=== PATIENT | male | born 1945 | race Caucasian/White ===

== ENCOUNTER 2018-11-27 08:11 | Inpatient (IN) | payer MEDICARE ==
[~2018-11-27] VITALS: Ht 193 cm; Wt 113.4 kg
[~2018-11-27 08:11] MED LIST: AMLO1CAP6 PO; CARB1TAB2 PO; CHOL10003 PO; FAMO20TA5 PO; FISH1CAP PO; GARL10002 PO; MAGN400C PO; PIOG30TA41 PO; TURM500C4 PO; UBID100C26 PO; WARF4TAB68 PO
[2018-11-27] MEDS ORDERED: KETOROLAC 30 MG/ML VIAL. IV ONE (09:15)
--- NOTE | 2018-11-27 10:00 | RAD ---
Examination: CT thoracic and lumbar spine without contrast HISTORY: History of fall, pain COMPARISON: None available TECHNIQUE: Axial CT images of the thoracic and lumbar spine were performed without contrast. Coronal and sagittal reformats are performed. Exposure: One or more of the following individualized dose reduction techniques were utilized for this examination: 1. Automated exposure control 2. Adjustment of the mA and/or kV according to patient size 3. Use of iterative reconstruction technique FINDINGS: Osseous demineralization limits evaluation. Moderate intervertebral disc height loss identified throughout the thoracic spine. There is mild compression change of T7 vertebral body similar to prior exam. There is kyphoplasty changes identified in the T12 vertebral body with severe compression again identified. There is kyphoplasty changes in the L2 vertebral body with moderate compression. There is mild compression of the L3 vertebral body with the lucency identified in the superior endplate likely acute fracture of the L3 vertebral body without bony retropulsion. Severe intervertebral disc height loss identified at L1-L2, L5-S1 vertebral levels. Examination limited osseous demineralization. Mild aortic atherosclerosis. IMPRESSION: 1. Acute fracture of the L3 vertebral body without bony retropulsion. Correlate for point tenderness. 2. Severe compression changes of T12 vertebral body and moderate compression changes of L2 vertebral body with kyphoplasty changes. 3. Old moderate compression fracture of T5 vertebral body. 4. Multilevel degenerative changes throughout the thoracolumbar spine. Electronically signed by: Real Elder MD (11/27/2018 9:57 AM) [id number]
[2018-11-27] MEDS ORDERED: ONDANSETRON PF 4 MG/2 ML VIAL. IV PRN ×2 (11:15→13:15)
[2018-11-27] MEDS ORDERED: ACETAMINOPHEN 325 MG TABLET. PO PRN (11:15)
[2018-11-27 11:45] VITALS: BP 145/84
--- NOTE | 2018-11-27 12:01 | PHYS DOC ---
Past Medical History Past Medical History: Diabetes-Type II, Other Additional Past Medical Histor: PARKINSON'S,PE Past Surgical History: Other Additional Past Surgical Histo: VERTEBRAL PLASTIES,COLLAR BONE Alcohol Use: None Drug Use: None Adult General Chief Complaint Chief Complaint: LOWER BACK PAIN OR INJURY HPI HPI 72-year-old male with a history of Parkinson's disease and previous lumbar and thoracic compression fractures presents 24 hours after he fell landing on his knees with immediate low back pain. He states over the course of last 24 hours the pain is become worse he's been unable to move and get out of bed. He is limited at baseline by his size and is Parkinson's disease but this is caused him to become bedbound. He denies any radicular symptoms. No bowel or bladder dysfunction. No saddle paresthesia. He does state the pain is 10 out of 10. He' s also quick to inform me that he does not want any opioid type pain medicine.[] Review of Systems Review of Systems Constitutional: Denies fever or chills [] Eyes: Denies change in visual acuity, redness, or eye pain [] HENT: Denies nasal congestion or sore throat [] Respiratory: Denies cough or shortness of breath [] Cardiovascular: No additional information not addressed in HPI [] GI: Denies abdominal pain, nausea, vomiting, bloody stools or diarrhea [] : Denies dysuria or hematuria [] Musculoskeletal: Per history of present illness[] Integument: Denies rash or skin lesions [] Neurologic: Denies headache, focal weakness or sensory changes [] Endocrine: Denies polyuria or polydipsia [] All other systems were reviewed and found to be within normal limits, except as documented in this note. Current Medications Current Medications Current Medications Medications (Trade) Dose Ordered Sig/Gabi Start Time Stop Time Status Last Admin Dose Admin Ketorolac Tromethamine (Toradol 30mg Vial) 30 mg 1X ONCE 11/27/18 09:15 11/27/18 09:16 DC 11/27/18 09:55 30 MG Allergies Allergies Allergies Coded Allergies Type Severity Reaction Last Updated Verified fentanyl Adverse Reaction Severe HALLUCINATES 02/18/18 Yes hydromorphone Adverse Reaction Severe HALLUCINATES 02/18/18 Yes Physical Exam Physical Exam Constitutional: Well developed, well nourished, moderate distress, non-toxic appearance. [] HENT: Normocephalic, atraumatic, bilateral external ears normal, oropharynx moist, no oral exudates, nose normal. [] Eyes: PERRLA, EOMI, conjunctiva normal, no discharge. [] Neck: Normal range of motion, no tenderness, supple, no stridor. [] Cardiovascular:Heart rate regular rhythm, no murmur [] Lungs & Thorax: Bilateral breath sounds clear to auscultation [] Abdomen: Bowel sounds normal, soft, no tenderness, no masses, no pulsatile masses. [] Skin: Warm, dry, no erythema, no rash. [] Back: Lumbar tenderness in the midline no obvious step-off exam is difficult secondary to size. [] Extremities: No tenderness, no cyanosis, no clubbing, ROM intact, no edema. [] Neurologic: Alert and oriented X 3, normal motor function, normal sensory function, no focal deficits noted. [] Psychologic: Very anxious. [] Current Patient Data Vital Signs Vital Signs Date Time Temp Pulse Resp B/P (MAP) Pulse Ox O2 Delivery O2 Flow Rate FiO2 11/27/18 11:00 82 20 131/69 (89) 93 Room Air 11/27/18 08:11 98.4 98.4 EKG EKG [] Radiology/Procedures Radiology/Procedures [] Course & Med Decision Making Course & Med Decision Making Pertinent Labs and Imaging studies reviewed. (See chart for details) [ED course: Evaluation reveals a 72-year-old male with intractable back pain. He was given Toradol for pain control which did help alleviate his symptoms. I believe it's because he is in a more comfortable position in the bed more so than the pain medicine working. He does have movement in his lower extremities sensation as well. CT scan shows new compression fracture. I believe he needs to be admitted to the hospital for physical therapy and possible consideration for vertebroplasty.] Dragon Disclaimer Dragon Disclaimer This electronic medical record was generated, in whole or in part, using a voice recognition dictation system. Departure Departure Impression: Primary Impression: Lumbar compression fracture Additional Impression: Intractable back pain Disposition: ADMITTED INPATIENT Admitting Physician: Riri Houston Condition: STABLE Referrals: ARGENIS STOCK DO (PCP) Problem Qualifiers Primary Impression: Lumbar compression fracture Encounter type: initial encounter Lumbar vertebra fracture level: L3 Fracture type: closed Qualified Codes: S32.030A - Wedge compression fracture of third lumbar vertebra, initial encounter for closed fracture ROBERTO GOMEZ DO Nov 27, 2018 12:01
[2018-11-27] MEDS ORDERED: oxyCODONE/APAP 5/325 1 TAB TABLET PO PRN (13:15)
[2018-11-27] MEDS ORDERED: DEXTROSE 50% 25 GM / 50ML DISP.SYRIN. IV PRN (13:15)
[2018-11-27] MEDS ORDERED: MORPHINE SULFATE 2 MG/ML VIAL. IV PRN (13:15)
--- NOTE | 2018-11-27 13:37 | PDOC1 ---
History and Physical Date of Admission Date of Admission DATE: 11/27/18 TIME: 13:32 Identification/Chief Complaint Chief Complaint severe Back pain, unable to get up today Source Source: Caregiver, Chart review, Patient History of Present Illness History of Present Illness 72-year-old male who fell on Sunday, mechanical fall, but still able to function somewhat. But today worsening that he could not get up. At the emergency room , no blood work needed to be done, but CAT scan shows compression fractures Thoracic and lumbar levels. Also known history of old fractures with evidence of kyphoplasty. No loss of bowel or bladder function. Palpable distal pulses. Severe reaction to fentanyl and Dilaudid and is not wanting narcotics. So far pain is controlled with Toradol and if he lays still. 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 Admitted because of the acute compression fractures thoracic and lumbar spines CT 1. Acute fracture of the L3 vertebral body without bony retropulsion. Correlate for point tenderness. 2. Severe compression changes of T12 vertebral body and moderate compression changes of L2 vertebral body with kyphoplasty changes. 3. Old moderate compression fracture of T5 vertebral body. 4. Multilevel degenerative changes throughout the thoracolumbar spine. Past Medical History Cardiovascular: HTN, Hyperlipidemia Pulmonary: Asthma CENTRAL NERVOUS SYSTEM: CVA, Other GI: No pertinent hx Heme/Onc: No pertinent hx, Other (saddle PE February 2018) Hepatobiliary: No pertinent hx Psych: No pertinent hx Infectious disease: No pertinent hx Renal/: No pertinent hx, Urinary Incontinence Endocrine: Diabetes Past Surgical History Past Surgical History: Other Family History Family History: No Significant Social History Smoke: No ALCOHOL: none Drugs: None Current Problem List Problem List Problems Medical Problems: (1) Intractable back pain Status: Acute (2) Lumbar compression fracture Status: Acute Current Medications Current Medications Current Medications Ketorolac Tromethamine (Toradol 30mg Vial) 30 mg 1X ONCE IV Last administered on 11/27/18at 09:55; Start 11/27/18 at 09:15; Stop 11/27/18 at 09:16; Status DC Ondansetron HCl (Zofran) 4 mg PRN Q8HRS PRN IV NAUSEA/VOMITING; Start 11/27/18 at 11:15; Stop 11/27/18 at 13:09; Status DC Sodium Chloride 1,000 ml @ 100 mls/hr Q10H IV ; Start 11/27/18 at 11:05; Stop 11/28/18 at 11:04 Acetaminophen (Tylenol) 650 mg PRN Q4HRS PRN PO FEVER; Start 11/27/18 at 11:15 ; Stop 11/28/18 at 11:14 Ondansetron HCl (Zofran) 4 mg PRN Q6HRS PRN IV NAUSEA/VOMITING; Start 11/27/18 at 13:15 Carbidopa/Levodopa (Sinemet 25/100) 1 tab TID PO ; Start 11/27/18 at 14:00; Stop 11/27/18 at 14:00; Status DC Vitamin D (Vitamin D3) 2,000 unit DAILY PO ; Start 11/27/18 at 14:00 Famotidine (Pepcid) 20 mg BID PO ; Start 11/27/18 at 14:00 Non-Formulary Medication (Amlodipine Besylate/ Benazepril (Lotrel 5-20 Mg Capsule)) 1 cap DAILY PO ; Start 11/28/18 at 09:00; Stop 11/28/18 at 09:00; Status DC Fish Oil (Fish Oil) 1,000 mg DAILY PO ; Start 11/27/18 at 14:00 Non-Formulary Medication (Garlic ) 1,000 mg DAILY PO ; Start 11/28/18 at 09:00; Status UNV Magnesium Oxide (Magnesium Oxide) 400 mg DAILY PO ; Start 11/27/18 at 14:00 Pioglitazone HCl (Actos) 30 mg DAILY PO ; Start 11/27/18 at 14:00 Non-Formulary Medication (Turmeric/ Turmeric Root Extract (Turmeric 500 mg Capsule)) 500 mg DAILY PO ; Start 11/28/18 at 09:00; Status UNV Non-Formulary Medication (Ubidecarenone (Coq-10)) 100 mg DAILY PO ; Start at 09:00; Status UNV Non-Formulary Medication (Warfarin Sodium (Coumadin)) 1 tab DAILY PO ; Start at 09:00; Stop 11/28/18 at 09:00; Status DC Insulin Human Lispro (HumaLOG) 0-9 UNITS TIDWMEALS SQ ; Start 11/27/18 at 17:00 ; Stop 11/27/18 at 17:00; Status DC Dextrose (Dextrose 50%-Water Syringe) 12.5 gm PRN Q15MIN PRN IV SEE COMMENTS; Start 11/27/18 at 13:15; Stop 11/27/18 at 13:31; Status DC Oxycodone/ Acetaminophen (Percocet 5/325) 1 tab PRN Q4HRS PRN PO PAIN; Start at 13:15; Stop 11/27/18 at 13:31; Status DC Morphine Sulfate (Morphine Sulfate) 2 mg PRN Q2HR PRN IV PAIN; Start 11/27/18 at 13:15; Stop 11/27/18 at 13:30; Status DC Active Scripts Active Coumadin (Warfarin Sodium) 4 Mg Tablet 1 Tab PO DAILY Famotidine 20 Mg Tablet 20 Mg PO BID Reported Actos (Pioglitazone Hcl) 30 Mg Tablet 30 Mg PO DAILY Lotrel 5-20 Mg Capsule (Amlodipine Besylate/Benazepril) 1 Each Capsule 1 Cap PO DAILY Sinemet 25-100 Mg Tablet (Carbidopa/Levodopa) 1 Each Tablet 1 Tab PO TID Garlic 1,000 Mg Capsule 1,000 Mg PO DAILY Vitamin D3 (Cholecalciferol (Vitamin D3)) 1,000 Unit Tablet 2,000 Unit PO DAILY Coq-10 (Ubidecarenone) 100 Mg Capsule 100 Mg PO DAILY Magnesium (Magnesium Oxide) 400 Mg Capsule 400 Mg PO DAILY Turmeric 500 mg Capsule (Turmeric/Turmeric Root Extract) 1 Each Capsule 500 Mg PO DAILY Fish Oil 1,200 Mg Fish Oil (Fish Oil/Dha/Epa) 1 Each Capsule 1,200 Mg PO DAILY Allergies Allergies: Coded Allergies: fentanyl (Verified Adverse Reaction, Severe, HALLUCINATES, 02/18/18) hydromorphone (Verified Adverse Reaction, Severe, HALLUCINATES, 02/18/18) ROS Review of System Back pain, the rest of history of present illness or ROS negative Physical Exam General: Alert, Oriented X3, Cooperative, No acute distress HEENT: Atraumatic, PERRLA, EOMI Lungs: Clear to auscultation, Normal air movement Heart: S1S2, RRR, no thrills, no rubs, no gallops, no murmurs Cardiovascular: S1, S2 Abdomen: Normal bowel sounds, Soft, No tenderness, No hepatosplenomegaly, No masses Male Genitals Exam: normal genitalia, normal prostate Rectal Exam: not examined Extremities: No clubbing, No cyanosis, No edema, Normal pulses, No tenderness/ swelling Skin: No rashes, No breakdown, No significant lesion Neuro: Normal gait, Normal speech, Strength at 5/5 X4 ext, Normal tone, Sensation intact, Cranial nerves 3-12 NL, Reflexes 2+ Psych/Mental Status: Mental status NL, Mood NL Vitals Vitals Vital Signs Date Time Temp Pulse Resp B/P (MAP) Pulse Ox O2 Delivery O2 Flow Rate FiO2 11/27/18 11:45 97.6 95 18 145/84 (104) 93 Room Air 97.6 VTE Prophylaxis Ordered VTE Prophylaxis Devices: Yes VTE Pharmacological Prophylaxi: Yes Assessment/Plan Assessment/Plan Acute fracture L3 without bony retropulsion Mechanical fall at home Severe compression changes T12-L2 History of kyphoplasty Old moderate compression fracture T5 DJD thoracic lumbar spine Parkinson's off Sinemet because of absence of tremors History PE February 2018 maintained on Coumadin-1 year, target N date February 2019 Severe reaction to Dilaudid and fentanyl-does not want narcotics. PLAN: Toradol only for pain, Tylenol only for by mouth pain Does not want any narcotic of sorts Consult physiatry Consult neurosurgery regarding acute fracture PT OT when able I did hold off warfarin pending neurosurgery eval Regular diet today then nothing by mouth post midnight pending neurosurgery eval Does not want to have blood sugar checks I'm okay with that-blood sugars not too high Further recs pending above discussed with RN and at bedside NATACHA MARI MD Nov 27, 2018 13:37
[2018-11-27 14:00] LABS: BASO % 0 % (0-3); EOS # 0.3 x10^3/uL (0.0-0.7); EOS % 4 % (0-3); HEMATOCRIT 41.6 % (39.0-53.0); HEMOGLOBIN 14.1 g/dL (13.0-17.5); LYMPH # 0.9 x10^3/uL (1.0-4.8); LYMPH % 14 % (24-48); MEAN CORPUSCULAR HEMOGLOBIN 33 pg (25-35); MEAN CORPUSCULAR HGB CONC 34 g/dL (31-37); MEAN CORPUSCULAR VOLUME 96 fL (79-100); MONO # 0.9 x10^3/uL (0.0-1.1); MONO % 13 % (0-9); NEUT # 4.6 x10^3uL (1.8-7.7); NEUT % 69 % (31-73); PLATELET COUNT 166 x10^3/uL (140-400); RED BLOOD COUNT 4.34 x10^6/uL (4.30-5.70); RED CELL DISTRIBUTION WIDTH 14.3 % (11.5-14.5); WHITE BLOOD COUNT 6.7 x10^3/uL (4.0-11.0)
[2018-11-27] MEDS: FAMOTIDINE 20 MG TABLET. PO SCH ×2 (14:00→21:00)
[2018-11-27] MEDS ORDERED: CARBIDOPA/LEVODOPA 25/100MG TABLET PO SCH (14:00)
[2018-11-27 14:07] LABS: PROTHROMBIN TIME PATIENT 25.8 SEC (11.7-14.0)
[2018-11-27 14:19] LABS: CALCIUM 8.7 mg/dL (8.5-10.1); CREATININE 1.1 mg/dL (0.7-1.3); GFR 66.2; POTASSIUM 4.2 mmol/L (3.5-5.1)
[2018-11-27 15:00] VITALS: BP 141/81
[2018-11-27] MEDS ORDERED: INSULIN LISPRO 300 UNITS/3 ML INSULN.PEN. SQ SCH (17:00)
[2018-11-27] MEDS: PIOGLITAZONE 15 MG TABLET. PO SCH (17:14)
[2018-11-27] MEDS: OMEGA-3 FATTY ACIDS/FISH OIL 1,000 MG CAPSULE. PO SCH (17:17)
[2018-11-27] MEDS: CHOLECALCIFEROL (VITAMIN D3) 1,000 UNIT TABLET PO SCH (17:17)
[2018-11-27] MEDS: MAGNESIUM OXIDE 400 MG TABLET PO SCH (17:17)
[2018-11-27] MEDS: IV NORMAL SALINE 1000ML BAG 1,000 ML IV SCH (17:19)
[2018-11-27 19:00] VITALS: BP 169/98
[2018-11-27] MEDS ORDERED: CYCLOBENZAPRINE 10 MG TABLET. PO PRN (19:00)
--- NOTE | 2018-11-27 19:50 | NUR ---
Pt was admitted from ED. Pt spouse was with pt on admission. Pt was oriented to unit and room. Pt is on bedrest. Spouse states pt has hallucinations at night. Pt cries at times, self soothes reciting scripture.
[2018-11-27 23:00] VITALS: BP 170/99
[2018-11-28 03:00] VITALS: BP 174/86
[2018-11-28] MEDS: IV NORMAL SALINE 1000ML BAG 1,000 ML IV SCH ×2 (06:16→06:33)
[2018-11-28 07:00] VITALS: BP 143/89
[2018-11-28] MEDS ORDERED: NON FORMULARY ITEM (Ubidecarenone (Coq-10) 100 MG) PO SCH (09:00)
[2018-11-28] MEDS ORDERED: NON FORMULARY ITEM (Warfarin Sodium (Coumadin) 1 TAB) PO SCH (09:00)
[2018-11-28] MEDS: PIOGLITAZONE 15 MG TABLET. PO SCH (09:00)
[2018-11-28] MEDS ORDERED: BENAZEPRIL PO SCH (09:00)
[2018-11-28] MEDS ORDERED: TURMERIC ROOT EXTRACT PO SCH (09:00)
[2018-11-28] MEDS ORDERED: AMLODIPINE BESYLATE PO SCH (09:00)
[2018-11-28] MEDS: BISACODYL 5 MG TABLET.DR. PO SCH (09:00)
[2018-11-28] MEDS: CHOLECALCIFEROL (VITAMIN D3) 1,000 UNIT TABLET PO SCH (09:00)
[2018-11-28] MEDS: MAGNESIUM OXIDE 400 MG TABLET PO SCH (09:00)
[2018-11-28] MEDS: OMEGA-3 FATTY ACIDS/FISH OIL 1,000 MG CAPSULE. PO SCH (09:00)
[2018-11-28] MEDS: FAMOTIDINE 20 MG TABLET. PO SCH ×2 (09:00→21:13)
[2018-11-28] MEDS ORDERED: NON FORMULARY ITEM (Garlic 1,000 MG) PO SCH (09:00)
[2018-11-28] MEDS ORDERED: TURMERIC PO SCH (09:00)
[2018-11-28 11:00] VITALS: BP 153/93
--- NOTE | 2018-11-28 11:26 | NUR ---
SW following. Discussed with RN, pt having an MRI today, and a procedure. Pt having falls at home. RN advised pt has some visual and auditory hallucinations but self soothes with reciting bible verses. SW will await PT/OT recommendations for discharge planning.
--- NOTE | 2018-11-28 13:07 | RAD ---
EXAMINATION: Magnetic resonance imaging (MRI) of the lumbar spine without contrast 11/28/2018 6:57 PM HISTORY: Acute L3 vertebral body compression fracture. TECHNIQUE: Multiplanar multi-weighted MRI of the lumbar spine was performed without intravenous contrast using the standard lumbar spine protocol. Contrast information: None administered. COMPARISON: CT lumbar spine November 27, 2018 FINDINGS: Alignment of the lumbar spine is normal. There is a treated superior endplate compression fracture involving T12 with 75 percent height loss. There is mild retropulsion resulting in mild spinal canal stenosis with minimal deformity of the ventral conus medullaris. The conus medullaris terminates at L1. Distal spinal cord signal intensity is normal in all sequences. There is a treated superior plate compression fracture involving L2 with 50 percent height loss. There is minimal retropulsion identified at this level with mild spinal canal stenosis. There is a acute superior plate compression fracture involving L3. There is mixed internal T1 and T2 signal hyperintensity which may reflect intraosseous hematoma. Edema is localized to the regions of fracture. There is no disruption of the posterior ligamentous complex. There is no significant epidural hematoma. No paraspinal hematomas identified. There is moderate disc height loss at L5-S1 with Modic type II endplate degenerative changes. Abdominal aorta is normal in caliber. No suspicious retroperitoneal abnormality is identified. T11-T12: There is a moderate disc bulge. There is moderate facet arthropathy. There is moderate bilateral neuroforaminal stenosis. Mild spinal canal stenosis with minimal indentation of the ventral conus. T12-L1: There is normal configuration of the disc. Mild facet arthropathy. No neuroforaminal or spinal canal stenosis. L1-L2: There is a mild circumferential disc bulge. There is mild facet arthropathy ligamentum flavum infolding. There is moderate bilateral neuroforaminal stenosis. Mild spinal canal stenosis. L2-L3: There is a moderate circumferential disc bulge. There is moderate facet arthropathy. There is moderate left and mild right neuroforaminal stenosis. Moderate spinal canal stenosis, exacerbated by epidural lipomatosis. L3-L4: There is mild circumferential disc bulge. There is moderate facet arthropathy with ligamentum flavum infolding. There is mild bilateral neuroforaminal stenosis. Mild spinal canal stenosis. L4-L5: There is a moderate disc bulge. There is moderate facet arthropathy. There is mild to moderate bilateral neuroforaminal stenosis. No spinal canal stenosis. L5-S1: There is disc bulge with mild to moderate bilateral neuroforaminal stenosis. No spinal canal stenosis. IMPRESSION: 1. Acute superior plate compression fracture involving L3 with mild loss. Intraosseous hematoma is suspected. There is no epidural hematoma or disruption the posterior ligamentous complex. 2. Treated compression deformities are identified at T12 and L2 with associated retropulsion and spinal canal stenosis as described in detail above. 3. Mild to moderate degenerative changes of the lumbar spine are present. Electronically signed by: Katherin Carbajal MD (11/28/2018 1:04 PM) [id number]
--- NOTE | 2018-11-28 13:19 | PDOC ---
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 History of Present Illness History of Present Illness Toradol for pain Consult physiatry following, discussed with me IR may be able to kyphoplasty, MRI showed hematoma Hold coumadin Regular diet Vitals Vitals Vital Signs Date Time Temp Pulse Resp B/P (MAP) Pulse Ox O2 Delivery O2 Flow Rate FiO2 11/28/18 11:00 99.6 89 16 153/93 (113) 92 Room Air 99.6 Physical Exam General: Alert, Oriented X3, Cooperative, No acute distress Lungs: Clear, Other Abdomen: Normal bowel sounds, Soft, No tenderness, No hepatosplenomegaly, No masses Extremities: No clubbing, No cyanosis, No edema, Normal pulses, No tenderness/ swelling Skin: No rashes, No breakdown, No significant lesion Labs LABS Laboratory Tests Test 11/27/18 13:45 White Blood Count 6.7 x10^3/uL (4.0-11.0) Red Blood Count 4.34 x10^6/uL (4.30-5.70) Hemoglobin 14.1 g/dL (13.0-17.5) Hematocrit 41.6 % (39.0-53.0) Mean Corpuscular Volume 96 fL (79-100) Mean Corpuscular Hemoglobin 33 pg (25-35) Mean Corpuscular Hemoglobin Concent 34 g/dL (31-37) Red Cell Distribution Width 14.3 % (11.5-14.5) Platelet Count 166 x10^3/uL (140-400) Neutrophils (%) (Auto) 69 % (31-73) Lymphocytes (%) (Auto) 14 % (24-48) Monocytes (%) (Auto) 13 % (0-9) Eosinophils (%) (Auto) 4 % (0-3) Basophils (%) (Auto) 0 % (0-3) Neutrophils # (Auto) 4.6 x10^3uL (1.8-7.7) Lymphocytes # (Auto) 0.9 x10^3/uL (1.0-4.8) Monocytes # (Auto) 0.9 x10^3/uL (0.0-1.1) Eosinophils # (Auto) 0.3 x10^3/uL (0.0-0.7) Basophils # (Auto) 0.0 x10^3/uL (0.0-0.2) Prothrombin Time 25.8 SEC (11.7-14.0) Prothromb Time International Ratio 2.4 (0.8-1.1) Sodium Level 144 mmol/L (136-145) Potassium Level 4.2 mmol/L (3.5-5.1) Chloride Level 106 mmol/L (98-107) Carbon Dioxide Level 29 mmol/L (21-32) Anion Gap 9 (6-14) Blood Urea Nitrogen 15 mg/dL (8-26) Creatinine 1.1 mg/dL (0.7-1.3) Estimated GFR (Cockcroft-Gault) 66.2 Glucose Level 113 mg/dL (70-99) Calcium Level 8.7 mg/dL (8.5-10.1) 25-Hydroxy Vitamin D Total 30.8 ng/mL (30-100) Assessment and Plan Assessmemt and Plan Problems Medical Problems: (1) Intractable back pain Status: Acute (2) Lumbar compression fracture Status: Acute Comment Review of Relevant I have reviewed the following items alma delia (where applicable) has been applied. Labs Laboratory Tests Test 11/27/18 13:45 White Blood Count 6.7 x10^3/uL (4.0-11.0) Red Blood Count 4.34 x10^6/uL (4.30-5.70) Hemoglobin 14.1 g/dL (13.0-17.5) Hematocrit 41.6 % (39.0-53.0) Mean Corpuscular Volume 96 fL (79-100) Mean Corpuscular Hemoglobin 33 pg (25-35) Mean Corpuscular Hemoglobin Concent 34 g/dL (31-37) Red Cell Distribution Width 14.3 % (11.5-14.5) Platelet Count 166 x10^3/uL (140-400) Neutrophils (%) (Auto) 69 % (31-73) Lymphocytes (%) (Auto) 14 % (24-48) Monocytes (%) (Auto) 13 % (0-9) Eosinophils (%) (Auto) 4 % (0-3) Basophils (%) (Auto) 0 % (0-3) Neutrophils # (Auto) 4.6 x10^3uL (1.8-7.7) Lymphocytes # (Auto) 0.9 x10^3/uL (1.0-4.8) Monocytes # (Auto) 0.9 x10^3/uL (0.0-1.1) Eosinophils # (Auto) 0.3 x10^3/uL (0.0-0.7) Basophils # (Auto) 0.0 x10^3/uL (0.0-0.2) Prothrombin Time 25.8 SEC (11.7-14.0) Prothromb Time International Ratio 2.4 (0.8-1.1) Sodium Level 144 mmol/L (136-145) Potassium Level 4.2 mmol/L (3.5-5.1) Chloride Level 106 mmol/L (98-107) Carbon Dioxide Level 29 mmol/L (21-32) Anion Gap 9 (6-14) Blood Urea Nitrogen 15 mg/dL (8-26) Creatinine 1.1 mg/dL (0.7-1.3) Estimated GFR (Cockcroft-Gault) 66.2 Glucose Level 113 mg/dL (70-99) Calcium Level 8.7 mg/dL (8.5-10.1) 25-Hydroxy Vitamin D Total 30.8 ng/mL (30-100) Laboratory Tests Test 11/27/18 13:45 White Blood Count 6.7 x10^3/uL (4.0-11.0) Red Blood Count 4.34 x10^6/uL (4.30-5.70) Hemoglobin 14.1 g/dL (13.0-17.5) Hematocrit 41.6 % (39.0-53.0) Mean Corpuscular Volume 96 fL (79-100) Mean Corpuscular Hemoglobin 33 pg (25-35) Mean Corpuscular Hemoglobin Concent 34 g/dL (31-37) Red Cell Distribution Width 14.3 % (11.5-14.5) Platelet Count 166 x10^3/uL (140-400) Neutrophils (%) (Auto) 69 % (31-73) Lymphocytes (%) (Auto) 14 % (24-48) Monocytes (%) (Auto) 13 % (0-9) Eosinophils (%) (Auto) 4 % (0-3) Basophils (%) (Auto) 0 % (0-3) Neutrophils # (Auto) 4.6 x10^3uL (1.8-7.7) Lymphocytes # (Auto) 0.9 x10^3/uL (1.0-4.8) Monocytes # (Auto) 0.9 x10^3/uL (0.0-1.1) Eosinophils # (Auto) 0.3 x10^3/uL (0.0-0.7) Basophils # (Auto) 0.0 x10^3/uL (0.0-0.2) Prothrombin Time 25.8 SEC (11.7-14.0) Prothromb Time International Ratio 2.4 (0.8-1.1) Sodium Level 144 mmol/L (136-145) Potassium Level 4.2 mmol/L (3.5-5.1) Chloride Level 106 mmol/L (98-107) Carbon Dioxide Level 29 mmol/L (21-32) Anion Gap 9 (6-14) Blood Urea Nitrogen 15 mg/dL (8-26) Creatinine 1.1 mg/dL (0.7-1.3) Estimated GFR (Cockcroft-Gault) 66.2 Glucose Level 113 mg/dL (70-99) Calcium Level 8.7 mg/dL (8.5-10.1) 25-Hydroxy Vitamin D Total 30.8 ng/mL (30-100) Medications Current Medications Ketorolac Tromethamine (Toradol 30mg Vial) 30 mg 1X ONCE IV Last administered on 11/27/18at 09:55; Start 11/27/18 at 09:15; Stop 11/27/18 at 09:16; Status DC Ondansetron HCl (Zofran) 4 mg PRN Q8HRS PRN IV NAUSEA/VOMITING; Start 11/27/18 at 11:15; Stop 11/27/18 at 13:09; Status DC Sodium Chloride 1,000 ml @ 100 mls/hr Q10H IV Last administered on 11/28/18at 06:16; Start 11/27/18 at 11:05; Stop 11/28/18 at 11:04; Status DC Acetaminophen (Tylenol) 650 mg PRN Q4HRS PRN PO FEVER; Start 11/27/18 at 11:15 ; Stop 11/28/18 at 11:14; Status DC Ondansetron HCl (Zofran) 4 mg PRN Q6HRS PRN IV NAUSEA/VOMITING; Start 11/27/18 at 13:15 Carbidopa/Levodopa (Sinemet 25/100) 1 tab TID PO ; Start 11/27/18 at 14:00; Stop 11/27/18 at 14:00; Status DC Vitamin D (Vitamin D3) 2,000 unit DAILY PO Last administered on 11/27/18at 17:17 ; Start 11/27/18 at 14:00 Famotidine (Pepcid) 20 mg BID PO ; Start 11/27/18 at 14:00 Non-Formulary Medication (Amlodipine Besylate/ Benazepril (Lotrel 5-20 Mg Capsule)) 1 cap DAILY PO ; Start 11/28/18 at 09:00; Stop 11/28/18 at 09:00; Status DC Fish Oil (Fish Oil) 1,000 mg DAILY PO Last administered on 11/27/18at 17:17; Start 11/27/18 at 14:00 Non-Formulary Medication (Garlic ) 1,000 mg DAILY PO ; Start 11/28/18 at 09:00; Status UNV Magnesium Oxide (Magnesium Oxide) 400 mg DAILY PO Last administered on at 17:17; Start 11/27/18 at 14:00 Pioglitazone HCl (Actos) 30 mg DAILY PO Last administered on 11/27/18at 17:14; Start 11/27/18 at 14:00 Non-Formulary Medication (Turmeric/ Turmeric Root Extract (Turmeric 500 mg Capsule)) 500 mg DAILY PO ; Start 11/28/18 at 09:00; Status UNV Non-Formulary Medication (Ubidecarenone (Coq-10)) 100 mg DAILY PO ; Start at 09:00; Status UNV Non-Formulary Medication (Warfarin Sodium (Coumadin)) 1 tab DAILY PO ; Start at 09:00; Stop 11/28/18 at 09:00; Status DC Insulin Human Lispro (HumaLOG) 0-9 UNITS TIDWMEALS SQ ; Start 11/27/18 at 17:00 ; Stop 11/27/18 at 17:00; Status DC Dextrose (Dextrose 50%-Water Syringe) 12.5 gm PRN Q15MIN PRN IV SEE COMMENTS; Start 11/27/18 at 13:15; Stop 11/27/18 at 13:31; Status DC Oxycodone/ Acetaminophen (Percocet 5/325) 1 tab PRN Q4HRS PRN PO PAIN; Start at 13:15; Stop 11/27/18 at 13:31; Status DC Morphine Sulfate (Morphine Sulfate) 2 mg PRN Q2HR PRN IV PAIN; Start 11/27/18 at 13:15; Stop 11/27/18 at 13:30; Status DC Ketorolac Tromethamine (Toradol 15mg Vial) 15 mg PRN Q6HRS PRN IV PAIN; Start 11/27/18 at 13:30; Stop 12/02/18 at 13:29 Cyclobenzaprine HCl (Flexeril) 10 mg PRN Q6HRS PRN PO MUSCLE SPASMS; Start at 19:00 Bisacodyl (Dulcolax Tab) 10 mg DAILY PO ; Start 11/28/18 at 09:00 Active Scripts Active Coumadin (Warfarin Sodium) 4 Mg Tablet 1 Tab PO DAILY Famotidine 20 Mg Tablet 20 Mg PO BID Reported Actos (Pioglitazone Hcl) 30 Mg Tablet 30 Mg PO DAILY Lotrel 5-20 Mg Capsule (Amlodipine Besylate/Benazepril) 1 Each Capsule 1 Cap PO DAILY Sinemet 25-100 Mg Tablet (Carbidopa/Levodopa) 1 Each Tablet 1 Tab PO TID Garlic 1,000 Mg Capsule 1,000 Mg PO DAILY Vitamin D3 (Cholecalciferol (Vitamin D3)) 1,000 Unit Tablet 2,000 Unit PO DAILY Coq-10 (Ubidecarenone) 100 Mg Capsule 100 Mg PO DAILY Magnesium (Magnesium Oxide) 400 Mg Capsule 400 Mg PO DAILY Turmeric 500 mg Capsule (Turmeric/Turmeric Root Extract) 1 Each Capsule 500 Mg PO DAILY Fish Oil 1,200 Mg Fish Oil (Fish Oil/Dha/Epa) 1 Each Capsule 1,200 Mg PO DAILY Vitals/I & O Vital Sign - Last 24 Hours 11/27/18 11/27/18 11/27/18 11/27/18 15:00 19:00 20:00 23:00 Temp 98.1 98.1 98.0 98.1 98.1 98.0 Pulse 78 97 96 Resp 18 18 18 B/P (MAP) 141/81 (101) 169/98 (121) 170/99 (122) Pulse Ox 92 92 92 O2 Delivery Room Air Room Air Room Air Room Air 11/28/18 11/28/18 11/28/18 11/28/18 03:00 07:00 08:00 11:00 Temp 98.0 97.9 99.6 98.0 97.9 99.6 Pulse 92 85 89 Resp 18 16 16 B/P (MAP) 174/86 (115) 143/89 (107) 153/93 (113) Pulse Ox 91 94 92 O2 Delivery Room Air Room Air Room Air Room Air Intake and Output 11/27/18 11/27/18 11/28/18 15:00 23:00 07:00 Intake Total 200 ml Balance 200 ml SARAH CHURCH MD Nov 28, 2018 13:19
--- NOTE | 2018-11-28 13:20 | CONS ---
DATE OF CONSULTATION: 11/27/2018 ATTENDING PHYSICIAN: Dr. Houston. The patient was seen at the request of Dr. Houston. He is in room 408. HISTORY OF PRESENT ILLNESS: This is a 72-year-old male, apparently had a mechanical fall on 11/25/2018, and he had difficulty to get up this morning. He was admitted through the Emergency Room. CT scan of thoracic and lumbar vertebrae revealed old compression fractures and probable new L3 vertebral body compression fracture. He apparently had kyphoplasty done in the past. The patient had a severe reaction to fentanyl and Dilaudid in the past. His pain is better controlled with Toradol. 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 He lives with his , had a walker, but does not use. He had been recovering from a recent kyphoplasty done and started walking. He does not use any assistive devices. He has been on Coumadin after he had saddle pulmonary emboli in 02/2018. The patient also was noted with severe compression fracture of T12 vertebral body and moderate compression changes of L2 vertebral body with kyphoplasty changes and acute compression fracture of L3 vertebral body without bony retropulsion and moderate compression fracture of T5 vertebral body, multilevel degenerative joint disease and degenerative disk disease of thoracic and lumbar vertebrae. He apparently having some urinary incontinence prior to the present hospitalization. Last bowel movement is on 01/25/2019. The patient with known hypertension, hyperlipidemia, asthmatic bronchitis, old cerebrovascular accident. He lives with his . No stairs for him to manage. Also, diabetes mellitus, diet controlled. PHYSICAL EXAMINATION: Today revealed a middle-aged male. He is alert, oriented to time, place, person and circumstance and follows commands appropriately, moves all 4 extremities voluntarily where he had increased stiffness, especially of his ankles. He had crepitus on range of motion of both knee joints without any obvious knee joint effusion. He has some tightness of bilateral heel cords without any tenderness to palpation. The patient had diffuse tenderness to palpation over lumbar spine and paraspinal muscles. No significant tenderness to palpation of thoracic spine area. Straight leg raising test is negative bilaterally. Deep tendon reflexes are decreased to absent overall. He requires help with rolling from side to side. I have not tested his transfers or ambulation skills at this time. ASSESSMENT: 1. A middle-aged male with mechanical fall on 11/25/2018, with L3 vertebral body compression fracture in a patient with known multiple previous thoracic and lumbar vertebral body compression fractures and had kyphoplasty done. 2. Diabetes mellitus with peripheral neuropathy. 3. History of hypertension, hyperlipidemia, asthmatic bronchitis, cerebrovascular accident, degenerative joint disease of both knees. Occasional urinary incontinence and also tight heel cords with some mobility limitations. RECOMMENDATIONS: To obtain MRI scan of his thoracic and lumbar vertebrae and to ask Interventional Radiology to proceed with L3 kyphoplasty to get him up with physical therapy and occupational therapy to consider lumbar support as needed. Dr. Houston, I appreciate asking me to participate in the care of this interesting patient. I will be glad to follow him with you as needed for the rehabilitation. LEONARD DIAZ MD DR: SHIRA/octaviano JOB#: [id number] / [id number]
--- NOTE | 2018-11-28 14:47 | PDOC ---
PROGRESS NOTES Subjective Subjective He admits continued low back pain with mobility. Objective Objective Vital Signs Date Time Temp Pulse Resp B/P (MAP) Pulse Ox O2 Delivery O2 Flow Rate FiO2 11/28/18 11:00 99.6 89 16 153/93 (113) 92 Room Air 99.6 Intake and Output 11/28/18 07:00 Intake Total 200 ml Balance 200 ml Intake Oral 200 ml # Voids 3 Physical Exam Physical Exam He is alert,supine in bed and continues with painfully limited lumbar spine ROM.Mri scan revealed new L3 vertebral body compression fracture and multi level DDD and DJD of lumbar vertebrae with some degree lumbar spinal stenosis. Assessment Assessment Problems Medical Problems: (1) Intractable back pain Status: Acute (2) Lumbar compression fracture Status: Acute Plan Plan of Care Waiting for L3 kyphoplasty. Comment Review of Relevant I have reviewed the following items alma delia (where applicable) has been applied. Labs Laboratory Tests Test 11/27/18 13:45 White Blood Count 6.7 x10^3/uL (4.0-11.0) Red Blood Count 4.34 x10^6/uL (4.30-5.70) Hemoglobin 14.1 g/dL (13.0-17.5) Hematocrit 41.6 % (39.0-53.0) Mean Corpuscular Volume 96 fL (79-100) Mean Corpuscular Hemoglobin 33 pg (25-35) Mean Corpuscular Hemoglobin Concent 34 g/dL (31-37) Red Cell Distribution Width 14.3 % (11.5-14.5) Platelet Count 166 x10^3/uL (140-400) Neutrophils (%) (Auto) 69 % (31-73) Lymphocytes (%) (Auto) 14 % (24-48) Monocytes (%) (Auto) 13 % (0-9) Eosinophils (%) (Auto) 4 % (0-3) Basophils (%) (Auto) 0 % (0-3) Neutrophils # (Auto) 4.6 x10^3uL (1.8-7.7) Lymphocytes # (Auto) 0.9 x10^3/uL (1.0-4.8) Monocytes # (Auto) 0.9 x10^3/uL (0.0-1.1) Eosinophils # (Auto) 0.3 x10^3/uL (0.0-0.7) Basophils # (Auto) 0.0 x10^3/uL (0.0-0.2) Prothrombin Time 25.8 SEC (11.7-14.0) Prothromb Time International Ratio 2.4 (0.8-1.1) Sodium Level 144 mmol/L (136-145) Potassium Level 4.2 mmol/L (3.5-5.1) Chloride Level 106 mmol/L (98-107) Carbon Dioxide Level 29 mmol/L (21-32) Anion Gap 9 (6-14) Blood Urea Nitrogen 15 mg/dL (8-26) Creatinine 1.1 mg/dL (0.7-1.3) Estimated GFR (Cockcroft-Gault) 66.2 Glucose Level 113 mg/dL (70-99) Calcium Level 8.7 mg/dL (8.5-10.1) 25-Hydroxy Vitamin D Total 30.8 ng/mL (30-100) Medications Current Medications Ketorolac Tromethamine (Toradol 30mg Vial) 30 mg 1X ONCE IV Last administered on 11/27/18at 09:55; Start 11/27/18 at 09:15; Stop 11/27/18 at 09:16; Status DC Ondansetron HCl (Zofran) 4 mg PRN Q8HRS PRN IV NAUSEA/VOMITING; Start 11/27/18 at 11:15; Stop 11/27/18 at 13:09; Status DC Sodium Chloride 1,000 ml @ 100 mls/hr Q10H IV Last administered on 11/28/18at 06:16; Start 11/27/18 at 11:05; Stop 11/28/18 at 11:04; Status DC Acetaminophen (Tylenol) 650 mg PRN Q4HRS PRN PO FEVER; Start 11/27/18 at 11:15 ; Stop 11/28/18 at 11:14; Status DC Ondansetron HCl (Zofran) 4 mg PRN Q6HRS PRN IV NAUSEA/VOMITING; Start 11/27/18 at 13:15 Carbidopa/Levodopa (Sinemet 25/100) 1 tab TID PO ; Start 11/27/18 at 14:00; Stop 11/27/18 at 14:00; Status DC Vitamin D (Vitamin D3) 2,000 unit DAILY PO Last administered on 11/27/18at 17:17 ; Start 11/27/18 at 14:00 Famotidine (Pepcid) 20 mg BID PO ; Start 11/27/18 at 14:00 Non-Formulary Medication (Amlodipine Besylate/ Benazepril (Lotrel 5-20 Mg Capsule)) 1 cap DAILY PO ; Start 11/28/18 at 09:00; Stop 11/28/18 at 09:00; Status DC Fish Oil (Fish Oil) 1,000 mg DAILY PO Last administered on 11/27/18at 17:17; Start 11/27/18 at 14:00 Non-Formulary Medication (Garlic ) 1,000 mg DAILY PO ; Start 11/28/18 at 09:00; Status UNV Magnesium Oxide (Magnesium Oxide) 400 mg DAILY PO Last administered on at 17:17; Start 11/27/18 at 14:00 Pioglitazone HCl (Actos) 30 mg DAILY PO Last administered on 11/27/18at 17:14; Start 11/27/18 at 14:00 Non-Formulary Medication (Turmeric/ Turmeric Root Extract (Turmeric 500 mg Capsule)) 500 mg DAILY PO ; Start 11/28/18 at 09:00; Status UNV Non-Formulary Medication (Ubidecarenone (Coq-10)) 100 mg DAILY PO ; Start at 09:00; Status UNV Non-Formulary Medication (Warfarin Sodium (Coumadin)) 1 tab DAILY PO ; Start at 09:00; Stop 11/28/18 at 09:00; Status DC Insulin Human Lispro (HumaLOG) 0-9 UNITS TIDWMEALS SQ ; Start 11/27/18 at 17:00 ; Stop 11/27/18 at 17:00; Status DC Dextrose (Dextrose 50%-Water Syringe) 12.5 gm PRN Q15MIN PRN IV SEE COMMENTS; Start 11/27/18 at 13:15; Stop 11/27/18 at 13:31; Status DC Oxycodone/ Acetaminophen (Percocet 5/325) 1 tab PRN Q4HRS PRN PO PAIN; Start at 13:15; Stop 11/27/18 at 13:31; Status DC Morphine Sulfate (Morphine Sulfate) 2 mg PRN Q2HR PRN IV PAIN; Start 11/27/18 at 13:15; Stop 11/27/18 at 13:30; Status DC Ketorolac Tromethamine (Toradol 15mg Vial) 15 mg PRN Q6HRS PRN IV PAIN; Start 11/27/18 at 13:30; Stop 12/02/18 at 13:29 Cyclobenzaprine HCl (Flexeril) 10 mg PRN Q6HRS PRN PO MUSCLE SPASMS; Start at 19:00 Bisacodyl (Dulcolax Tab) 10 mg DAILY PO ; Start 11/28/18 at 09:00 Active Scripts Active Coumadin (Warfarin Sodium) 4 Mg Tablet 1 Tab PO DAILY Famotidine 20 Mg Tablet 20 Mg PO BID Reported Actos (Pioglitazone Hcl) 30 Mg Tablet 30 Mg PO DAILY Lotrel 5-20 Mg Capsule (Amlodipine Besylate/Benazepril) 1 Each Capsule 1 Cap PO DAILY Sinemet 25-100 Mg Tablet (Carbidopa/Levodopa) 1 Each Tablet 1 Tab PO TID Garlic 1,000 Mg Capsule 1,000 Mg PO DAILY Vitamin D3 (Cholecalciferol (Vitamin D3)) 1,000 Unit Tablet 2,000 Unit PO DAILY Coq-10 (Ubidecarenone) 100 Mg Capsule 100 Mg PO DAILY Magnesium (Magnesium Oxide) 400 Mg Capsule 400 Mg PO DAILY Turmeric 500 mg Capsule (Turmeric/Turmeric Root Extract) 1 Each Capsule 500 Mg PO DAILY Fish Oil 1,200 Mg Fish Oil (Fish Oil/Dha/Epa) 1 Each Capsule 1,200 Mg PO DAILY Vitals/I & O Vital Sign - Last 24 Hours 11/27/18 11/27/18 11/27/18 11/27/18 15:00 19:00 20:00 23:00 Temp 98.1 98.1 98.0 98.1 98.1 98.0 Pulse 78 97 96 Resp 18 18 18 B/P (MAP) 141/81 (101) 169/98 (121) 170/99 (122) Pulse Ox 92 92 92 O2 Delivery Room Air Room Air Room Air Room Air 11/28/18 11/28/18 11/28/18 11/28/18 03:00 07:00 08:00 11:00 Temp 98.0 97.9 99.6 98.0 97.9 99.6 Pulse 92 85 89 Resp 18 16 16 B/P (MAP) 174/86 (115) 143/89 (107) 153/93 (113) Pulse Ox 91 94 92 O2 Delivery Room Air Room Air Room Air Room Air Intake and Output 11/27/18 11/27/18 11/28/18 15:00 23:00 07:00 Intake Total 200 ml Balance 200 ml LEONARD DIAZ MD Nov 28, 2018 14:47
[2018-11-28 15:00] VITALS: BP 155/93
--- NOTE | 2018-11-28 16:14 | PDOC ---
Provider Note Provider Note IR NOTE L3 compression fracture, MRI confirmed. Patient pleasant but confused. Patients reports lifestyle limiting pain, making getting around the house difficult. Patient has had multiple prior vertebral augmentation procedures. On Coumadin with INR 2.4. Would like less than 1.5 for procedure. Will check in am and consider FFP to bring down further as needed. Also patient reports prior poor reaction to fentanyl and other mod sedation drugs. His confusion at baseline make make this more challenging. Will ask for anesthesiology help during procedure. Plan on vertebral augmentation 3.29 if everything can be worked out. VANESSA ASIF MD Nov 28, 2018 16:14
[2018-11-28 19:15] VITALS: BP_SYST 158; BP_SYST 180; BP_DIAS 109; BP_DIAS 74
[2018-11-28 23:22] VITALS: BP 135/81
[2018-11-29] VITALS (12 sets, daily range): BP systolic 144–179; BP diastolic 87–104
[2018-11-29] MEDS ORDERED: IV RINGERS,LACTATED 1000ML 1,000 ML IV SCH (08:27)
[2018-11-29] MEDS ORDERED: PROCHLORPERAZINE 10 MG/2 ML VIAL. IV PRN (08:30)
[2018-11-29] MEDS ORDERED: ONDANSETRON PF 4 MG/2 ML VIAL. IV PRN (08:30)
--- NOTE | 2018-11-29 08:39 | NUR ---
SW following. Discussed with RN, pt possibly having surgery today pending INR. SW will continue to follow and await PT/OT recommendations for discharge planning.
[2018-11-29] MEDS: MAGNESIUM OXIDE 400 MG TABLET PO SCH (09:00)
[2018-11-29] MEDS: CHOLECALCIFEROL (VITAMIN D3) 1,000 UNIT TABLET PO SCH (09:00)
[2018-11-29] MEDS: BISACODYL 5 MG TABLET.DR. PO SCH (09:00)
[2018-11-29] MEDS: OMEGA-3 FATTY ACIDS/FISH OIL 1,000 MG CAPSULE. PO SCH (09:00)
[2018-11-29] MEDS: PIOGLITAZONE 15 MG TABLET. PO SCH (09:00)
[2018-11-29] MEDS: FAMOTIDINE 20 MG TABLET. PO SCH ×2 (09:00→20:56)
--- NOTE | 2018-11-29 09:05 | PDOC ---
PROGRESS NOTES Subjective Subjective He admits continued low back pain with mobility. Objective Objective Vital Signs Date Time Temp Pulse Resp B/P (MAP) Pulse Ox O2 Delivery O2 Flow Rate FiO2 11/29/18 07:00 97.9 88 16 163/97 (119) 94 Room Air 97.9 Intake and Output 11/29/18 07:00 Intake Total 120 ml Balance 120 ml Intake Oral 120 ml # Voids 2 Physical Exam Physical Exam He is supine in bed and continues with painfully limited lumbar spine ROM and he requires maximal help with mobility. Assessment Assessment Problems Medical Problems: (1) Intractable back pain Status: Acute (2) Lumbar compression fracture Status: Acute Plan Plan of Care To get him up as tolerated after kyphoplasty and he may need transfer to SNF when medically stable if his pain is limiting his mobility and self care. Comment Review of Relevant I have reviewed the following items alma delia (where applicable) has been applied. Labs Laboratory Tests Test 11/27/18 13:45 11/29/18 06:17 White Blood Count 6.7 x10^3/uL (4.0-11.0) Red Blood Count 4.34 x10^6/uL (4.30-5.70) Hemoglobin 14.1 g/dL (13.0-17.5) Hematocrit 41.6 % (39.0-53.0) Mean Corpuscular Volume 96 fL (79-100) Mean Corpuscular Hemoglobin 33 pg (25-35) Mean Corpuscular Hemoglobin Concent 34 g/dL (31-37) Red Cell Distribution Width 14.3 % (11.5-14.5) Platelet Count 166 x10^3/uL (140-400) Neutrophils (%) (Auto) 69 % (31-73) Lymphocytes (%) (Auto) 14 % (24-48) Monocytes (%) (Auto) 13 % (0-9) Eosinophils (%) (Auto) 4 % (0-3) Basophils (%) (Auto) 0 % (0-3) Neutrophils # (Auto) 4.6 x10^3uL (1.8-7.7) Lymphocytes # (Auto) 0.9 x10^3/uL (1.0-4.8) Monocytes # (Auto) 0.9 x10^3/uL (0.0-1.1) Eosinophils # (Auto) 0.3 x10^3/uL (0.0-0.7) Basophils # (Auto) 0.0 x10^3/uL (0.0-0.2) Prothrombin Time 25.8 SEC (11.7-14.0) 20.0 SEC (11.7-14.0) Prothromb Time International Ratio 2.4 (0.8-1.1) 1.7 (0.8-1.1) Sodium Level 144 mmol/L (136-145) Potassium Level 4.2 mmol/L (3.5-5.1) Chloride Level 106 mmol/L (98-107) Carbon Dioxide Level 29 mmol/L (21-32) Anion Gap 9 (6-14) Blood Urea Nitrogen 15 mg/dL (8-26) Creatinine 1.1 mg/dL (0.7-1.3) Estimated GFR (Cockcroft-Gault) 66.2 Glucose Level 113 mg/dL (70-99) Calcium Level 8.7 mg/dL (8.5-10.1) 25-Hydroxy Vitamin D Total 30.8 ng/mL (30-100) Laboratory Tests Test 11/29/18 06:17 Prothrombin Time 20.0 SEC (11.7-14.0) Prothromb Time International Ratio 1.7 (0.8-1.1) Medications Current Medications Ketorolac Tromethamine (Toradol 30mg Vial) 30 mg 1X ONCE IV Last administered on 11/27/18at 09:55; Start 11/27/18 at 09:15; Stop 11/27/18 at 09:16; Status DC Ondansetron HCl (Zofran) 4 mg PRN Q8HRS PRN IV NAUSEA/VOMITING; Start 11/27/18 at 11:15; Stop 11/27/18 at 13:09; Status DC Sodium Chloride 1,000 ml @ 100 mls/hr Q10H IV Last administered on 11/28/18at 06:16; Start 11/27/18 at 11:05; Stop 11/28/18 at 11:04; Status DC Acetaminophen (Tylenol) 650 mg PRN Q4HRS PRN PO FEVER; Start 11/27/18 at 11:15 ; Stop 11/28/18 at 11:14; Status DC Ondansetron HCl (Zofran) 4 mg PRN Q6HRS PRN IV NAUSEA/VOMITING; Start 11/27/18 at 13:15 Carbidopa/Levodopa (Sinemet 25/100) 1 tab TID PO ; Start 11/27/18 at 14:00; Stop 11/27/18 at 14:00; Status DC Vitamin D (Vitamin D3) 2,000 unit DAILY PO Last administered on 11/27/18at 17:17 ; Start 11/27/18 at 14:00 Famotidine (Pepcid) 20 mg BID PO Last administered on 11/28/18at 21:13; Start at 14:00 Non-Formulary Medication (Amlodipine Besylate/ Benazepril (Lotrel 5-20 Mg Capsule)) 1 cap DAILY PO ; Start 11/28/18 at 09:00; Stop 11/28/18 at 09:00; Status DC Fish Oil (Fish Oil) 1,000 mg DAILY PO Last administered on 11/27/18at 17:17; Start 11/27/18 at 14:00 Non-Formulary Medication (Garlic ) 1,000 mg DAILY PO ; Start 11/28/18 at 09:00; Status UNV Magnesium Oxide (Magnesium Oxide) 400 mg DAILY PO Last administered on at 17:17; Start 11/27/18 at 14:00 Pioglitazone HCl (Actos) 30 mg DAILY PO Last administered on 11/27/18at 17:14; Start 11/27/18 at 14:00 Non-Formulary Medication (Turmeric/ Turmeric Root Extract (Turmeric 500 mg Capsule)) 500 mg DAILY PO ; Start 11/28/18 at 09:00; Status UNV Non-Formulary Medication (Ubidecarenone (Coq-10)) 100 mg DAILY PO ; Start at 09:00; Status UNV Non-Formulary Medication (Warfarin Sodium (Coumadin)) 1 tab DAILY PO ; Start at 09:00; Stop 11/28/18 at 09:00; Status DC Insulin Human Lispro (HumaLOG) 0-9 UNITS TIDWMEALS SQ ; Start 11/27/18 at 17:00 ; Stop 11/27/18 at 17:00; Status DC Dextrose (Dextrose 50%-Water Syringe) 12.5 gm PRN Q15MIN PRN IV SEE COMMENTS; Start 11/27/18 at 13:15; Stop 11/27/18 at 13:31; Status DC Oxycodone/ Acetaminophen (Percocet 5/325) 1 tab PRN Q4HRS PRN PO PAIN; Start at 13:15; Stop 11/27/18 at 13:31; Status DC Morphine Sulfate (Morphine Sulfate) 2 mg PRN Q2HR PRN IV PAIN; Start 11/27/18 at 13:15; Stop 11/27/18 at 13:30; Status DC Ketorolac Tromethamine (Toradol 15mg Vial) 15 mg PRN Q6HRS PRN IV PAIN; Start 11/27/18 at 13:30; Stop 12/02/18 at 13:29 Cyclobenzaprine HCl (Flexeril) 10 mg PRN Q6HRS PRN PO MUSCLE SPASMS; Start at 19:00 Bisacodyl (Dulcolax Tab) 10 mg DAILY PO ; Start 11/28/18 at 09:00 Ondansetron HCl (Zofran) 4 mg PRN Q6HRS PRN IV NAUSEA/VOMITING; Start 11/29/18 at 08:30; Stop 11/29/18 at 20:00 Ringer's Solution 1,000 ml @ 30 mls/hr Q24H IV ; Start 11/29/18 at 08:27; Stop 11/29/18 at 20:26 Prochlorperazine Edisylate (Compazine) 5 mg PACU PRN PRN IV NAUSEA, MRX1; Start 11/29/18 at 08:30; Stop 11/29/18 at 20:00 Active Scripts Active Coumadin (Warfarin Sodium) 4 Mg Tablet 1 Tab PO DAILY Famotidine 20 Mg Tablet 20 Mg PO BID Reported Actos (Pioglitazone Hcl) 30 Mg Tablet 30 Mg PO DAILY Lotrel 5-20 Mg Capsule (Amlodipine Besylate/Benazepril) 1 Each Capsule 1 Cap PO DAILY Sinemet 25-100 Mg Tablet (Carbidopa/Levodopa) 1 Each Tablet 1 Tab PO TID Garlic 1,000 Mg Capsule 1,000 Mg PO DAILY Vitamin D3 (Cholecalciferol (Vitamin D3)) 1,000 Unit Tablet 2,000 Unit PO DAILY Coq-10 (Ubidecarenone) 100 Mg Capsule 100 Mg PO DAILY Magnesium (Magnesium Oxide) 400 Mg Capsule 400 Mg PO DAILY Turmeric 500 mg Capsule (Turmeric/Turmeric Root Extract) 1 Each Capsule 500 Mg PO DAILY Fish Oil 1,200 Mg Fish Oil (Fish Oil/Dha/Epa) 1 Each Capsule 1,200 Mg PO DAILY Vitals/I & O Vital Sign - Last 24 Hours 11/28/18 11/28/18 11/28/18 11/28/18 11:00 15:00 19:15 20:25 Temp 99.6 97.9 98.1 99.6 97.9 98.1 Pulse 89 96 90 Resp 16 16 22 B/P (MAP) 153/93 (113) 155/93 (113) 158/74 (102) Pulse Ox 92 95 90 O2 Delivery Room Air Room Air Room Air Room Air 11/28/18 11/28/18 11/29/18 11/29/18 23:15 23:22 03:15 07:00 Temp 98.0 98.0 97.8 97.9 98.0 98.0 97.8 97.9 Pulse 85 84 86 88 Resp 18 20 20 16 B/P (MAP) 135/81 (99) 144/87 (106) 163/97 (119) Pulse Ox 91 91 91 94 O2 Delivery Room Air Room Air Room Air Room Air Intake and Output 11/28/18 11/28/18 11/29/18 15:00 23:00 07:00 Intake Total 120 ml Balance 120 ml LEONARD DIAZ MD Nov 29, 2018 09:05
[2018-11-29] MEDS ORDERED: MIDAZOLAM HCL/PF 2 MG/2 ML VIAL. ONE (10:04)
[2018-11-29] MEDS ORDERED: KETAMINE HCL IN NACL, ISO-OSM 50 MG/5 ML SYRINGE ONE (12:15)
[2018-11-29] MEDS ORDERED: LIDOCAINE WITH 8.4% SOD BICARB 3 ML DISP.SYRIN. ONE (12:34)
[2018-11-29] MEDS ORDERED: IOHEXOL 240 MG/ML 50ML VIAL. ONE (12:35)
--- NOTE | 2018-11-29 15:46 | PDOC ---
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 History of Present Illness History of Present Illness kyphoplasty today, restart coumadin INR was 1.7 this AM, [facility]FP give n, Consult physiatry following, Regular diet Vitals Vitals Vital Signs Date Time Temp Pulse Resp B/P (MAP) Pulse Ox O2 Delivery O2 Flow Rate FiO2 11/29/18 15:00 81 16 166/98 (120) 95 Room Air 11/29/18 14:15 97.9 2 97.9 Physical Exam General: Alert, Oriented X3, Cooperative, No acute distress Lungs: Clear, Other Abdomen: Normal bowel sounds, Soft, No tenderness, No hepatosplenomegaly, No masses Extremities: No clubbing, No cyanosis, No edema, Normal pulses, No tenderness/ swelling Skin: No rashes, No breakdown, No significant lesion Labs LABS Laboratory Tests Test 11/29/18 06:17 Prothrombin Time 20.0 SEC (11.7-14.0) Prothromb Time International Ratio 1.7 (0.8-1.1) Assessment and Plan Assessmemt and Plan Problems Medical Problems: (1) Intractable back pain Status: Acute (2) Lumbar compression fracture Status: Acute Comment Review of Relevant I have reviewed the following items alma delia (where applicable) has been applied. Labs Laboratory Tests Test 11/29/18 06:17 Prothrombin Time 20.0 SEC (11.7-14.0) Prothromb Time International Ratio 1.7 (0.8-1.1) Laboratory Tests Test 11/29/18 06:17 Prothrombin Time 20.0 SEC (11.7-14.0) Prothromb Time International Ratio 1.7 (0.8-1.1) Medications Current Medications Ketorolac Tromethamine (Toradol 30mg Vial) 30 mg 1X ONCE IV Last administered on 11/27/18at 09:55; Start 11/27/18 at 09:15; Stop 11/27/18 at 09:16; Status DC Ondansetron HCl (Zofran) 4 mg PRN Q8HRS PRN IV NAUSEA/VOMITING; Start 11/27/18 at 11:15; Stop 11/27/18 at 13:09; Status DC Sodium Chloride 1,000 ml @ 100 mls/hr Q10H IV Last administered on 11/28/18at 06:16; Start 11/27/18 at 11:05; Stop 11/28/18 at 11:04; Status DC Acetaminophen (Tylenol) 650 mg PRN Q4HRS PRN PO FEVER; Start 11/27/18 at 11:15 ; Stop 11/28/18 at 11:14; Status DC Ondansetron HCl (Zofran) 4 mg PRN Q6HRS PRN IV NAUSEA/VOMITING; Start 11/27/18 at 13:15 Carbidopa/Levodopa (Sinemet 25/100) 1 tab TID PO ; Start 11/27/18 at 14:00; Stop 11/27/18 at 14:00; Status DC Vitamin D (Vitamin D3) 2,000 unit DAILY PO Last administered on 11/27/18at 17:17 ; Start 11/27/18 at 14:00 Famotidine (Pepcid) 20 mg BID PO Last administered on 11/28/18at 21:13; Start at 14:00 Non-Formulary Medication (Amlodipine Besylate/ Benazepril (Lotrel 5-20 Mg Capsule)) 1 cap DAILY PO ; Start 11/28/18 at 09:00; Stop 11/28/18 at 09:00; Status DC Fish Oil (Fish Oil) 1,000 mg DAILY PO Last administered on 11/27/18at 17:17; Start 11/27/18 at 14:00 Non-Formulary Medication (Garlic ) 1,000 mg DAILY PO ; Start 11/28/18 at 09:00; Status UNV Magnesium Oxide (Magnesium Oxide) 400 mg DAILY PO Last administered on at 17:17; Start 11/27/18 at 14:00 Pioglitazone HCl (Actos) 30 mg DAILY PO Last administered on 11/27/18at 17:14; Start 11/27/18 at 14:00 Non-Formulary Medication (Turmeric/ Turmeric Root Extract (Turmeric 500 mg Capsule)) 500 mg DAILY PO ; Start 11/28/18 at 09:00; Status UNV Non-Formulary Medication (Ubidecarenone (Coq-10)) 100 mg DAILY PO ; Start at 09:00; Status UNV Non-Formulary Medication (Warfarin Sodium (Coumadin)) 1 tab DAILY PO ; Start at 09:00; Stop 11/28/18 at 09:00; Status DC Insulin Human Lispro (HumaLOG) 0-9 UNITS TIDWMEALS SQ ; Start 11/27/18 at 17:00 ; Stop 11/27/18 at 17:00; Status DC Dextrose (Dextrose 50%-Water Syringe) 12.5 gm PRN Q15MIN PRN IV SEE COMMENTS; Start 11/27/18 at 13:15; Stop 11/27/18 at 13:31; Status DC Oxycodone/ Acetaminophen (Percocet 5/325) 1 tab PRN Q4HRS PRN PO PAIN; Start at 13:15; Stop 11/27/18 at 13:31; Status DC Morphine Sulfate (Morphine Sulfate) 2 mg PRN Q2HR PRN IV PAIN; Start 11/27/18 at 13:15; Stop 11/27/18 at 13:30; Status DC Ketorolac Tromethamine (Toradol 15mg Vial) 15 mg PRN Q6HRS PRN IV PAIN; Start 11/27/18 at 13:30; Stop 12/02/18 at 13:29 Cyclobenzaprine HCl (Flexeril) 10 mg PRN Q6HRS PRN PO MUSCLE SPASMS; Start at 19:00 Bisacodyl (Dulcolax Tab) 10 mg DAILY PO ; Start 11/28/18 at 09:00 Ondansetron HCl (Zofran) 4 mg PRN Q6HRS PRN IV NAUSEA/VOMITING; Start 11/29/18 at 08:30; Stop 11/29/18 at 20:00 Ringer's Solution 1,000 ml @ 30 mls/hr Q24H IV ; Start 11/29/18 at 08:27; Stop 11/29/18 at 20:26 Prochlorperazine Edisylate (Compazine) 5 mg PACU PRN PRN IV NAUSEA, MRX1; Start 11/29/18 at 08:30; Stop 11/29/18 at 20:00 Midazolam HCl (Versed) 2 mg STK-MED ONCE .ROUTE ; Start 11/29/18 at 10:04; Stop 11/29/18 at 10:05; Status DC Ketamine HCl (Ketamine) 50 mg STK-MED ONCE .ROUTE ; Start 11/29/18 at 12:15; Stop 11/29/18 at 12:16; Status DC Lidocaine/Sodium Bicarbonate (Buffered Lidocaine 1%) 3 ml STK-MED ONCE .ROUTE ; Start 11/29/18 at 12:34; Stop 11/29/18 at 12:35; Status DC Iohexol (Omnipaque 240 Mg/ml) 50 ml STK-MED ONCE .ROUTE ; Start 11/29/18 at 12: 35; Stop 11/29/18 at 12:36; Status DC Cefazolin Sodium 50 ml @ As Directed STK-MED ONCE IV ; Start 11/29/18 at 12:35; Stop 11/29/18 at 12:36; Status DC Active Scripts Active Coumadin (Warfarin Sodium) 4 Mg Tablet 1 Tab PO DAILY Famotidine 20 Mg Tablet 20 Mg PO BID Reported Actos (Pioglitazone Hcl) 30 Mg Tablet 30 Mg PO DAILY Lotrel 5-20 Mg Capsule (Amlodipine Besylate/Benazepril) 1 Each Capsule 1 Cap PO DAILY Sinemet 25-100 Mg Tablet (Carbidopa/Levodopa) 1 Each Tablet 1 Tab PO TID Garlic 1,000 Mg Capsule 1,000 Mg PO DAILY Vitamin D3 (Cholecalciferol (Vitamin D3)) 1,000 Unit Tablet 2,000 Unit PO DAILY Coq-10 (Ubidecarenone) 100 Mg Capsule 100 Mg PO DAILY Magnesium (Magnesium Oxide) 400 Mg Capsule 400 Mg PO DAILY Turmeric 500 mg Capsule (Turmeric/Turmeric Root Extract) 1 Each Capsule 500 Mg PO DAILY Fish Oil 1,200 Mg Fish Oil (Fish Oil/Dha/Epa) 1 Each Capsule 1,200 Mg PO DAILY Vitals/I & O Vital Sign - Last 24 Hours 11/28/18 11/28/18 11/28/18 11/28/18 19:15 20:25 23:15 23:22 Temp 98.1 98.0 98.0 98.1 98.0 98.0 Pulse 90 85 84 Resp 22 18 20 B/P (MAP) 158/74 (102) 135/81 (99) Pulse Ox 90 91 91 O2 Delivery Room Air Room Air Room Air Room Air 11/29/18 11/29/18 11/29/18 11/29/18 03:15 07:00 08:00 11:00 Temp 97.8 97.9 97.9 97.8 97.9 97.9 Pulse 86 88 86 Resp 20 16 16 B/P (MAP) 144/87 (106) 163/97 (119) 149/87 (107) Pulse Ox 91 94 96 O2 Delivery Room Air Room Air Room Air Room Air 11/29/18 11/29/18 11/29/18 11/29/18 11:33 11:49 13:50 13:50 Temp 97.9 98.4 98.0 97.9 98.4 98.0 Pulse 86 84 86 Resp 16 16 18 B/P (MAP) 149/87 154/88 136/82 Pulse Ox 99 O2 Delivery Nasal Cannula Simple Mask O2 Flow Rate 2 10 11/29/18 11/29/18 11/29/18 11/29/18 14:00 14:15 15:00 15:00 Temp 98.0 97.9 98.0 97.9 Pulse 80 80 81 81 Resp 20 20 16 16 B/P (MAP) 155/77 145/92 166/98 (120) 166/98 (120) Pulse Ox 99 96 95 95 O2 Delivery Nasal Cannula Nasal Cannula Room Air Room Air O2 Flow Rate 2 2 Intake and Output 11/28/18 11/28/18 11/29/18 15:00 23:00 07:00 Intake Total 120 ml Balance 120 ml SARAH CHURCH MD Nov 29, 2018 15:46
[2018-11-29] MEDS ORDERED: WARFARIN 4 MG TABLET. PO ONE (16:00)
--- NOTE | 2018-11-29 16:20 | RAD ---
Fluoroscopically guided kyphoplasty, L3 11/29/2018 Indication:Lumbar compression fracture. Intractable pain refractory to conservative treatment measures. Fluoro time:12.8 MINUTES Dose area product: 21104.8 mGycm2 MAC sedation was provided by the anesthesiology department. Consent: The risks and benefits of the procedure were discussed with the patient. Informed consent was obtained. The patient was brought to the fluoroscopy suite and placed in the prone position. A timeout procedure was performed. Preprocedural antibiotics were administered. Procedure: The overlying skin was prepped and draped in the usual sterile fashion. All elements of maximal sterile barrier technique including the use of a cap, mask, sterile gown, sterile gloves, large sterile sheet, appropriate hand hygiene, and 2% chlorhexidine for cutaneous antisepsis (or acceptable alternative antiseptic per current guidelines) were followed for this procedure. Using a left transpedicular approach, and direct fluoroscopic guidance, a trocar needle was advanced to the posterior third of the targeted vertebral body. Vertebral augmentation balloon was then coaxially introduced through the needle, into the more central vertebral body and was deployed. A curved cement delivery needle was advanced into the contralateral vertebral body. Contrast opacified polymethylmethacrylate was then very slowly and carefully introduced through the vertebral augmentation needle, using strict fluoroscopic control. Once adequate filling had been achieved the needles were removed and manual pressure was held. No significant extravasation or complication was identified. Sterile dressing was applied. Patient tolerated the procedure well, without apparent complication. Impression: Fluoroscopically guided kyphoplasty, L3
[2018-11-30] VITALS (7 sets, daily range): BP systolic 126–154; BP diastolic 77–99
[2018-11-30] MEDS: KETOROLAC 15 MG/ML VIAL. IV PRN ×3 (04:27→21:48)
[2018-11-30 05:07] LABS: PROTHROMBIN TIME PATIENT 19.7 SEC (11.7-14.0)
[2018-11-30] MEDS: BISACODYL 5 MG TABLET.DR. PO SCH (09:00)
[2018-11-30] MEDS: OMEGA-3 FATTY ACIDS/FISH OIL 1,000 MG CAPSULE. PO SCH (10:25)
[2018-11-30] MEDS: PIOGLITAZONE 15 MG TABLET. PO SCH (10:26)
[2018-11-30] MEDS: MAGNESIUM OXIDE 400 MG TABLET PO SCH (10:26)
[2018-11-30] MEDS: FAMOTIDINE 20 MG TABLET. PO SCH ×2 (10:26→21:47)
[2018-11-30] MEDS: CHOLECALCIFEROL (VITAMIN D3) 1,000 UNIT TABLET PO SCH (10:26)
--- NOTE | 2018-11-30 11:00 | PDOC ---
PROGRESS NOTES Subjective Subjective He c/o pain left groin area. Objective Objective Vital Signs Date Time Temp Pulse Resp B/P (MAP) Pulse Ox O2 Delivery O2 Flow Rate FiO2 11/30/18 08:27 98.1 77 18 154/87 (109) 92 Room Air 98.1 11/29/18 14:15 2 Intake and Output 11/30/18 07:00 Intake Total 850 ml Output Total 200 ml Balance 650 ml IV Total 250 ml Blood Product IV Normal Saline Flush 600 ml Output Urine Total 200 ml # Voids 8 Physical Exam Physical Exam He is somewhat disoriented this AM and he had tenderness to palpation over sacroiliac joint and left trochanteric bursa area and not much pain on rotational movements of left hip. He continues to require maximal help with bed mobility and transfers and he made a few steps with roller walker with assistance and his right leg lags behind and he needs cues to pick it up. Assessment Assessment Problems Medical Problems: (1) Intractable back pain Status: Acute (2) Lumbar compression fracture Status: Acute Plan Plan of Care To get him up as tolerated and to SNF when medically stable. Comment Review of Relevant I have reviewed the following items alma delia (where applicable) has been applied. Labs Laboratory Tests Test 11/29/18 06:17 11/30/18 03:10 Prothrombin Time 20.0 SEC (11.7-14.0) 19.7 SEC (11.7-14.0) Prothromb Time International Ratio 1.7 (0.8-1.1) 1.7 (0.8-1.1) Laboratory Tests Test 11/30/18 03:10 Prothrombin Time 19.7 SEC (11.7-14.0) Prothromb Time International Ratio 1.7 (0.8-1.1) Medications Current Medications Ketorolac Tromethamine (Toradol 30mg Vial) 30 mg 1X ONCE IV Last administered on 11/27/18at 09:55; Start 11/27/18 at 09:15; Stop 11/27/18 at 09:16; Status DC Ondansetron HCl (Zofran) 4 mg PRN Q8HRS PRN IV NAUSEA/VOMITING; Start 11/27/18 at 11:15; Stop 11/27/18 at 13:09; Status DC Sodium Chloride 1,000 ml @ 100 mls/hr Q10H IV Last administered on 11/28/18at 06:16; Start 11/27/18 at 11:05; Stop 11/28/18 at 11:04; Status DC Acetaminophen (Tylenol) 650 mg PRN Q4HRS PRN PO FEVER; Start 11/27/18 at 11:15 ; Stop 11/28/18 at 11:14; Status DC Ondansetron HCl (Zofran) 4 mg PRN Q6HRS PRN IV NAUSEA/VOMITING; Start 11/27/18 at 13:15 Carbidopa/Levodopa (Sinemet 25/100) 1 tab TID PO ; Start 11/27/18 at 14:00; Stop 11/27/18 at 14:00; Status DC Vitamin D (Vitamin D3) 2,000 unit DAILY PO Last administered on 11/30/18at 10:26 ; Start 11/27/18 at 14:00 Famotidine (Pepcid) 20 mg BID PO Last administered on 11/30/18at 10:26; Start at 14:00 Non-Formulary Medication (Amlodipine Besylate/ Benazepril (Lotrel 5-20 Mg Capsule)) 1 cap DAILY PO ; Start 11/28/18 at 09:00; Stop 11/28/18 at 09:00; Status DC Fish Oil (Fish Oil) 1,000 mg DAILY PO Last administered on 11/30/18at 10:25; Start 11/27/18 at 14:00 Non-Formulary Medication (Garlic ) 1,000 mg DAILY PO ; Start 11/28/18 at 09:00; Status UNV Magnesium Oxide (Magnesium Oxide) 400 mg DAILY PO Last administered on at 10:26; Start 11/27/18 at 14:00 Pioglitazone HCl (Actos) 30 mg DAILY PO Last administered on 11/30/18at 10:26; Start 11/27/18 at 14:00 Non-Formulary Medication (Turmeric/ Turmeric Root Extract (Turmeric 500 mg Capsule)) 500 mg DAILY PO ; Start 11/28/18 at 09:00; Status UNV Non-Formulary Medication (Ubidecarenone (Coq-10)) 100 mg DAILY PO ; Start at 09:00; Status UNV Non-Formulary Medication (Warfarin Sodium (Coumadin)) 1 tab DAILY PO ; Start at 09:00; Stop 11/28/18 at 09:00; Status DC Insulin Human Lispro (HumaLOG) 0-9 UNITS TIDWMEALS SQ ; Start 11/27/18 at 17:00 ; Stop 11/27/18 at 17:00; Status DC Dextrose (Dextrose 50%-Water Syringe) 12.5 gm PRN Q15MIN PRN IV SEE COMMENTS; Start 11/27/18 at 13:15; Stop 11/27/18 at 13:31; Status DC Oxycodone/ Acetaminophen (Percocet 5/325) 1 tab PRN Q4HRS PRN PO PAIN; Start at 13:15; Stop 11/27/18 at 13:31; Status DC Morphine Sulfate (Morphine Sulfate) 2 mg PRN Q2HR PRN IV PAIN; Start 11/27/18 at 13:15; Stop 11/27/18 at 13:30; Status DC Ketorolac Tromethamine (Toradol 15mg Vial) 15 mg PRN Q6HRS PRN IV PAIN Last administered on 11/30/18at 04:27; Start 11/27/18 at 13:30; Stop 12/02/18 at 13:29 Cyclobenzaprine HCl (Flexeril) 10 mg PRN Q6HRS PRN PO MUSCLE SPASMS; Start at 19:00 Bisacodyl (Dulcolax Tab) 10 mg DAILY PO ; Start 11/28/18 at 09:00 Ondansetron HCl (Zofran) 4 mg PRN Q6HRS PRN IV NAUSEA/VOMITING; Start 11/29/18 at 08:30; Stop 11/29/18 at 20:00; Status DC Ringer's Solution 1,000 ml @ 30 mls/hr Q24H IV ; Start 11/29/18 at 08:27; Stop 11/29/18 at 20:26; Status DC Prochlorperazine Edisylate (Compazine) 5 mg PACU PRN PRN IV NAUSEA, MRX1; Start 11/29/18 at 08:30; Stop 11/29/18 at 20:00; Status DC Midazolam HCl (Versed) 2 mg STK-MED ONCE .ROUTE ; Start 11/29/18 at 10:04; Stop 11/29/18 at 10:05; Status DC Ketamine HCl (Ketamine) 50 mg STK-MED ONCE .ROUTE ; Start 11/29/18 at 12:15; Stop 11/29/18 at 12:16; Status DC Lidocaine/Sodium Bicarbonate (Buffered Lidocaine 1%) 3 ml STK-MED ONCE .ROUTE ; Start 11/29/18 at 12:34; Stop 11/29/18 at 12:35; Status DC Iohexol (Omnipaque 240 Mg/ml) 50 ml STK-MED ONCE .ROUTE ; Start 11/29/18 at 12: 35; Stop 11/29/18 at 12:36; Status DC Cefazolin Sodium 50 ml @ As Directed STK-MED ONCE IV ; Start 11/29/18 at 12:35; Stop 11/29/18 at 12:36; Status DC Warfarin Sodium (Coumadin Per Pharmacy) 1 each PRN DAILY PRN [facility] SEE COMMENTS; Start 11/29/18 at 15:45 Enoxaparin Sodium (Lovenox Per Pharmacy Treatment Dosing) 1 each PRN DAILY PRN [facility] SEE COMMENTS; Start 11/29/18 at 15:45 Enoxaparin Sodium (Lovenox 120mg Syringe) 120 mg Q12HR SQ Last administered on 11/30/18at 10:28; Start 11/29/18 at 16:00 Warfarin Sodium (Coumadin) 4 mg 1X WARF ONCE PO Last administered on at 17:38; Start 11/29/18 at 16:00; Stop 11/29/18 at 16:46; Status DC Active Scripts Active Coumadin (Warfarin Sodium) 4 Mg Tablet 1 Tab PO DAILY Famotidine 20 Mg Tablet 20 Mg PO BID Reported Actos (Pioglitazone Hcl) 30 Mg Tablet 30 Mg PO DAILY Lotrel 5-20 Mg Capsule (Amlodipine Besylate/Benazepril) 1 Each Capsule 1 Cap PO DAILY Sinemet 25-100 Mg Tablet (Carbidopa/Levodopa) 1 Each Tablet 1 Tab PO TID Garlic 1,000 Mg Capsule 1,000 Mg PO DAILY Vitamin D3 (Cholecalciferol (Vitamin D3)) 1,000 Unit Tablet 2,000 Unit PO DAILY Coq-10 (Ubidecarenone) 100 Mg Capsule 100 Mg PO DAILY Magnesium (Magnesium Oxide) 400 Mg Capsule 400 Mg PO DAILY Turmeric 500 mg Capsule (Turmeric/Turmeric Root Extract) 1 Each Capsule 500 Mg PO DAILY Fish Oil 1,200 Mg Fish Oil (Fish Oil/Dha/Epa) 1 Each Capsule 1,200 Mg PO DAILY Vitals/I & O Vital Sign - Last 24 Hours 11/29/18 11/29/18 11/29/18 11/29/18 11:00 11:33 11:49 12:35 Temp 97.9 97.9 98.4 98.4 97.9 97.9 98.4 98.4 Pulse 86 86 84 83 Resp 16 16 16 18 B/P (MAP) 149/87 (107) 149/87 154/88 155/89 Pulse Ox 96 O2 Delivery Room Air 11/29/18 11/29/18 11/29/18 11/29/18 13:50 13:50 14:00 14:15 Temp 98.0 98.0 97.9 98.0 98.0 97.9 Pulse 86 80 80 Resp 18 20 20 B/P (MAP) 136/82 155/77 145/92 Pulse Ox 99 99 96 O2 Delivery Nasal Cannula Simple Mask Nasal Cannula Nasal Cannula O2 Flow Rate 2 10 2 2 11/29/18 11/29/18 11/29/18 11/29/18 15:00 15:00 15:03 16:01 Pulse 81 81 63 85 Resp 16 16 B/P (MAP) 166/98 (120) 166/98 (120) 166/98 (120) 153/98 (116) Pulse Ox 95 95 83 83 O2 Delivery Room Air Room Air 11/29/18 11/29/18 11/29/18 11/29/18 17:01 19:00 20:00 23:00 Temp 97.7 98.1 97.7 98.1 Pulse 90 89 85 Resp 16 16 B/P (MAP) 161/95 (117) 164/101 (122) 179/104 (129) Pulse Ox 98 91 90 O2 Delivery Room Air Room Air Room Air 11/30/18 11/30/18 11/30/18 03:00 07:00 08:27 Temp 98.0 98.1 98.1 98.0 98.1 98.1 Pulse 86 77 77 Resp 16 18 18 B/P (MAP) 126/77 (93) 154/87 (109) 154/87 (109) Pulse Ox 91 92 92 O2 Delivery Room Air Room Air Room Air Intake and Output 11/29/18 11/29/18 11/30/18 15:00 23:00 07:00 Intake Total 850 ml Output Total 200 ml Balance 850 ml -200 ml LEONARD DIAZ MD Nov 30, 2018 11:00
[2018-11-30 11:33] LABS: CALCIUM 8.6 mg/dL (8.5-10.1); CREATININE 0.9 mg/dL (0.7-1.3); GFR 83.4; POTASSIUM 3.8 mmol/L (3.5-5.1)
[2018-11-30 11:48] LABS: BASO % 0 % (0-3); EOS # 0.4 x10^3/uL (0.0-0.7); EOS % 7 % (0-3); HEMATOCRIT 42.1 % (39.0-53.0); HEMOGLOBIN 13.9 g/dL (13.0-17.5); LYMPH # 0.9 x10^3/uL (1.0-4.8); LYMPH % 13 % (24-48); MEAN CORPUSCULAR HEMOGLOBIN 32 pg (25-35); MEAN CORPUSCULAR HGB CONC 33 g/dL (31-37); MEAN CORPUSCULAR VOLUME 96 fL (79-100); MONO % 15 % (0-9); NEUT # 4.3 x10^3uL (1.8-7.7); NEUT % 65 % (31-73); PLATELET COUNT 192 x10^3/uL (140-400); RED BLOOD COUNT 4.36 x10^6/uL (4.30-5.70); RED CELL DISTRIBUTION WIDTH 14.2 % (11.5-14.5); WHITE BLOOD COUNT 6.6 x10^3/uL (4.0-11.0)
--- NOTE | 2018-11-30 14:55 | RAD ---
HIP LEFT 2V WITH PELVIS History: LEFT HIP PAIN Comparison: None. Findings: AP pelvis and 2 additional views left hip are submitted. No acute fracture or dislocation is identified. There is mild osteoarthritic change left hip. Impression: 1. No acute osseous abnormality is identified by radiographs, mild osteoarthritic change of the left hip. Electronically signed by: Ayad Nair MD (11/30/2018 2:53 PM) [facility]
--- NOTE | 2018-11-30 15:12 | PDOC ---
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 History of Present Illness History of Present Illness confused, lethargic this AM, he reports a rough night of pain, difficult as he cannot take narcotics due to marked confusion episodes previously kyphoplasty today, restart coumadin INR was 1.7 this AM, same as yesterday, cont lovenox, bridge plan discussed with , Consult physiatry following, will need home health his reports he usually has problems with his mental status in the hospital and clears up when he goes home Regular diet Vitals Vitals Vital Signs Date Time Temp Pulse Resp B/P (MAP) Pulse Ox O2 Delivery O2 Flow Rate FiO2 11/30/18 08:27 98.1 77 18 154/87 (109) 92 Room Air 98.1 11/29/18 14:15 2 Physical Exam General: Alert, Oriented X3, Cooperative, No acute distress Heart: Regular rate, No murmurs, Other Lungs: Clear, Other Abdomen: Normal bowel sounds, Soft, No tenderness, No hepatosplenomegaly, No masses Extremities: No clubbing, No cyanosis, No edema, Normal pulses, No tenderness/ swelling Skin: No rashes, No breakdown, No significant lesion Labs LABS Laboratory Tests Test 11/30/18 03:10 White Blood Count 6.6 x10^3/uL (4.0-11.0) Red Blood Count 4.36 x10^6/uL (4.30-5.70) Hemoglobin 13.9 g/dL (13.0-17.5) Hematocrit 42.1 % (39.0-53.0) Mean Corpuscular Volume 96 fL (79-100) Mean Corpuscular Hemoglobin 32 pg (25-35) Mean Corpuscular Hemoglobin Concent 33 g/dL (31-37) Red Cell Distribution Width 14.2 % (11.5-14.5) Platelet Count 192 x10^3/uL (140-400) Neutrophils (%) (Auto) 65 % (31-73) Lymphocytes (%) (Auto) 13 % (24-48) Monocytes (%) (Auto) 15 % (0-9) Eosinophils (%) (Auto) 7 % (0-3) Basophils (%) (Auto) 0 % (0-3) Neutrophils # (Auto) 4.3 x10^3uL (1.8-7.7) Lymphocytes # (Auto) 0.9 x10^3/uL (1.0-4.8) Monocytes # (Auto) 1.0 x10^3/uL (0.0-1.1) Eosinophils # (Auto) 0.4 x10^3/uL (0.0-0.7) Basophils # (Auto) 0.0 x10^3/uL (0.0-0.2) Prothrombin Time 19.7 SEC (11.7-14.0) Prothromb Time International Ratio 1.7 (0.8-1.1) Sodium Level 140 mmol/L (136-145) Potassium Level 3.8 mmol/L (3.5-5.1) Chloride Level 104 mmol/L (98-107) Carbon Dioxide Level 26 mmol/L (21-32) Anion Gap 10 (6-14) Blood Urea Nitrogen 18 mg/dL (8-26) Creatinine 0.9 mg/dL (0.7-1.3) Estimated GFR (Cockcroft-Gault) 83.4 Glucose Level 135 mg/dL (70-99) Calcium Level 8.6 mg/dL (8.5-10.1) Assessment and Plan Assessmemt and Plan Problems Medical Problems: (1) Intractable back pain Status: Acute (2) Lumbar compression fracture Status: Acute Comment Review of Relevant I have reviewed the following items alma delia (where applicable) has been applied. Labs Laboratory Tests Test 11/29/18 06:17 11/30/18 03:10 Prothrombin Time 20.0 SEC (11.7-14.0) 19.7 SEC (11.7-14.0) Prothromb Time International Ratio 1.7 (0.8-1.1) 1.7 (0.8-1.1) White Blood Count 6.6 x10^3/uL (4.0-11.0) Red Blood Count 4.36 x10^6/uL (4.30-5.70) Hemoglobin 13.9 g/dL (13.0-17.5) Hematocrit 42.1 % (39.0-53.0) Mean Corpuscular Volume 96 fL (79-100) Mean Corpuscular Hemoglobin 32 pg (25-35) Mean Corpuscular Hemoglobin Concent 33 g/dL (31-37) Red Cell Distribution Width 14.2 % (11.5-14.5) Platelet Count 192 x10^3/uL (140-400) Neutrophils (%) (Auto) 65 % (31-73) Lymphocytes (%) (Auto) 13 % (24-48) Monocytes (%) (Auto) 15 % (0-9) Eosinophils (%) (Auto) 7 % (0-3) Basophils (%) (Auto) 0 % (0-3) Neutrophils # (Auto) 4.3 x10^3uL (1.8-7.7) Lymphocytes # (Auto) 0.9 x10^3/uL (1.0-4.8) Monocytes # (Auto) 1.0 x10^3/uL (0.0-1.1) Eosinophils # (Auto) 0.4 x10^3/uL (0.0-0.7) Basophils # (Auto) 0.0 x10^3/uL (0.0-0.2) Sodium Level 140 mmol/L (136-145) Potassium Level 3.8 mmol/L (3.5-5.1) Chloride Level 104 mmol/L (98-107) Carbon Dioxide Level 26 mmol/L (21-32) Anion Gap 10 (6-14) Blood Urea Nitrogen 18 mg/dL (8-26) Creatinine 0.9 mg/dL (0.7-1.3) Estimated GFR (Cockcroft-Gault) 83.4 Glucose Level 135 mg/dL (70-99) Calcium Level 8.6 mg/dL (8.5-10.1) Laboratory Tests Test 11/30/18 03:10 White Blood Count 6.6 x10^3/uL (4.0-11.0) Red Blood Count 4.36 x10^6/uL (4.30-5.70) Hemoglobin 13.9 g/dL (13.0-17.5) Hematocrit 42.1 % (39.0-53.0) Mean Corpuscular Volume 96 fL (79-100) Mean Corpuscular Hemoglobin 32 pg (25-35) Mean Corpuscular Hemoglobin Concent 33 g/dL (31-37) Red Cell Distribution Width 14.2 % (11.5-14.5) Platelet Count 192 x10^3/uL (140-400) Neutrophils (%) (Auto) 65 % (31-73) Lymphocytes (%) (Auto) 13 % (24-48) Monocytes (%) (Auto) 15 % (0-9) Eosinophils (%) (Auto) 7 % (0-3) Basophils (%) (Auto) 0 % (0-3) Neutrophils # (Auto) 4.3 x10^3uL (1.8-7.7) Lymphocytes # (Auto) 0.9 x10^3/uL (1.0-4.8) Monocytes # (Auto) 1.0 x10^3/uL (0.0-1.1) Eosinophils # (Auto) 0.4 x10^3/uL (0.0-0.7) Basophils # (Auto) 0.0 x10^3/uL (0.0-0.2) Prothrombin Time 19.7 SEC (11.7-14.0) Prothromb Time International Ratio 1.7 (0.8-1.1) Sodium Level 140 mmol/L (136-145) Potassium Level 3.8 mmol/L (3.5-5.1) Chloride Level 104 mmol/L (98-107) Carbon Dioxide Level 26 mmol/L (21-32) Anion Gap 10 (6-14) Blood Urea Nitrogen 18 mg/dL (8-26) Creatinine 0.9 mg/dL (0.7-1.3) Estimated GFR (Cockcroft-Gault) 83.4 Glucose Level 135 mg/dL (70-99) Calcium Level 8.6 mg/dL (8.5-10.1) Medications Current Medications Ketorolac Tromethamine (Toradol 30mg Vial) 30 mg 1X ONCE IV Last administered on 11/27/18at 09:55; Start 11/27/18 at 09:15; Stop 11/27/18 at 09:16; Status DC Ondansetron HCl (Zofran) 4 mg PRN Q8HRS PRN IV NAUSEA/VOMITING; Start 11/27/18 at 11:15; Stop 11/27/18 at 13:09; Status DC Sodium Chloride 1,000 ml @ 100 mls/hr Q10H IV Last administered on 11/28/18at 06:16; Start 11/27/18 at 11:05; Stop 11/28/18 at 11:04; Status DC Acetaminophen (Tylenol) 650 mg PRN Q4HRS PRN PO FEVER; Start 11/27/18 at 11:15 ; Stop 11/28/18 at 11:14; Status DC Ondansetron HCl (Zofran) 4 mg PRN Q6HRS PRN IV NAUSEA/VOMITING; Start 11/27/18 at 13:15 Carbidopa/Levodopa (Sinemet 25/100) 1 tab TID PO ; Start 11/27/18 at 14:00; Stop 11/27/18 at 14:00; Status DC Vitamin D (Vitamin D3) 2,000 unit DAILY PO Last administered on 11/30/18at 10:26 ; Start 11/27/18 at 14:00 Famotidine (Pepcid) 20 mg BID PO Last administered on 11/30/18 10:26; Start at 14:00 Non-Formulary Medication (Amlodipine Besylate/ Benazepril (Lotrel 5-20 Mg Capsule)) 1 cap DAILY PO ; Start 11/28/18 at 09:00; Stop 11/28/18 at 09:00; Status DC Fish Oil (Fish Oil) 1,000 mg DAILY PO Last administered on 11/30/18at 10:25; Start 11/27/18 at 14:00 Non-Formulary Medication (Garlic ) 1,000 mg DAILY PO ; Start 11/28/18 at 09:00; Status UNV Magnesium Oxide (Magnesium Oxide) 400 mg DAILY PO Last administered on at 10:26; Start 11/27/18 at 14:00 Pioglitazone HCl (Actos) 30 mg DAILY PO Last administered on 11/30/18at 10:26; Start 11/27/18 at 14:00 Non-Formulary Medication (Turmeric/ Turmeric Root Extract (Turmeric 500 mg Capsule)) 500 mg DAILY PO ; Start 11/28/18 at 09:00; Status UNV Non-Formulary Medication (Ubidecarenone (Coq-10)) 100 mg DAILY PO ; Start at 09:00; Status UNV Non-Formulary Medication (Warfarin Sodium (Coumadin)) 1 tab DAILY PO ; Start at 09:00; Stop 11/28/18 at 09:00; Status DC Insulin Human Lispro (HumaLOG) 0-9 UNITS TIDWMEALS SQ ; Start 11/27/18 at 17:00 ; Stop 11/27/18 at 17:00; Status DC Dextrose (Dextrose 50%-Water Syringe) 12.5 gm PRN Q15MIN PRN IV SEE COMMENTS; Start 11/27/18 at 13:15; Stop 11/27/18 at 13:31; Status DC Oxycodone/ Acetaminophen (Percocet 5/325) 1 tab PRN Q4HRS PRN PO PAIN; Start at 13:15; Stop 11/27/18 at 13:31; Status DC Morphine Sulfate (Morphine Sulfate) 2 mg PRN Q2HR PRN IV PAIN; Start 11/27/18 at 13:15; Stop 11/27/18 at 13:30; Status DC Ketorolac Tromethamine (Toradol 15mg Vial) 15 mg PRN Q6HRS PRN IV PAIN Last administered on 11/30/18at 04:27; Start 11/27/18 at 13:30; Stop 12/02/18 at 13:29 Cyclobenzaprine HCl (Flexeril) 10 mg PRN Q6HRS PRN PO MUSCLE SPASMS; Start at 19:00 Bisacodyl (Dulcolax Tab) 10 mg DAILY PO ; Start 11/28/18 at 09:00 Ondansetron HCl (Zofran) 4 mg PRN Q6HRS PRN IV NAUSEA/VOMITING; Start 11/29/18 at 08:30; Stop 11/29/18 at 20:00; Status DC Ringer's Solution 1,000 ml @ 30 mls/hr Q24H IV ; Start 11/29/18 at 08:27; Stop 11/29/18 at 20:26; Status DC Prochlorperazine Edisylate (Compazine) 5 mg PACU PRN PRN IV NAUSEA, MRX1; Start 11/29/18 at 08:30; Stop 11/29/18 at 20:00; Status DC Midazolam HCl (Versed) 2 mg STK-MED ONCE .ROUTE ; Start 11/29/18 at 10:04; Stop 11/29/18 at 10:05; Status DC Ketamine HCl (Ketamine) 50 mg STK-MED ONCE .ROUTE ; Start 11/29/18 at 12:15; Stop 11/29/18 at 12:16; Status DC Lidocaine/Sodium Bicarbonate (Buffered Lidocaine 1%) 3 ml STK-MED ONCE .ROUTE ; Start 11/29/18 at 12:34; Stop 11/29/18 at 12:35; Status DC Iohexol (Omnipaque 240 Mg/ml) 50 ml STK-MED ONCE .ROUTE ; Start 11/29/18 at 12: 35; Stop 11/29/18 at 12:36; Status DC Cefazolin Sodium 50 ml @ As Directed STK-MED ONCE IV ; Start 11/29/18 at 12:35; Stop 11/29/18 at 12:36; Status DC Warfarin Sodium (Coumadin Per Pharmacy) 1 each PRN DAILY PRN MC SEE COMMENTS; Start 11/29/18 at 15:45 Enoxaparin Sodium (Lovenox Per Pharmacy Treatment Dosing) 1 each PRN DAILY PRN MC SEE COMMENTS; Start 11/29/18 at 15:45 Enoxaparin Sodium (Lovenox 120mg Syringe) 120 mg Q12HR SQ Last administered on 11/30/18at 10:28; Start 11/29/18 at 16:00 Warfarin Sodium (Coumadin) 4 mg 1X WARF ONCE PO Last administered on at 17:38; Start 11/29/18 at 16:00; Stop 11/29/18 at 16:46; Status DC Active Scripts Active Coumadin (Warfarin Sodium) 4 Mg Tablet 1 Tab PO DAILY Famotidine 20 Mg Tablet 20 Mg PO BID Reported Actos (Pioglitazone Hcl) 30 Mg Tablet 30 Mg PO DAILY Lotrel 5-20 Mg Capsule (Amlodipine Besylate/Benazepril) 1 Each Capsule 1 Cap PO DAILY Sinemet 25-100 Mg Tablet (Carbidopa/Levodopa) 1 Each Tablet 1 Tab PO TID Garlic 1,000 Mg Capsule 1,000 Mg PO DAILY Vitamin D3 (Cholecalciferol (Vitamin D3)) 1,000 Unit Tablet 2,000 Unit PO DAILY Coq-10 (Ubidecarenone) 100 Mg Capsule 100 Mg PO DAILY Magnesium (Magnesium Oxide) 400 Mg Capsule 400 Mg PO DAILY Turmeric 500 mg Capsule (Turmeric/Turmeric Root Extract) 1 Each Capsule 500 Mg PO DAILY Fish Oil 1,200 Mg Fish Oil (Fish Oil/Dha/Epa) 1 Each Capsule 1,200 Mg PO DAILY Vitals/I & O Vital Sign - Last 24 Hours 11/29/18 11/29/18 11/29/18 11/29/18 16:01 17:01 19:00 20:00 Temp 97.7 97.7 Pulse 85 90 89 Resp 16 B/P (MAP) 153/98 (116) 161/95 (117) 164/101 (122) Pulse Ox 83 98 91 O2 Delivery Room Air Room Air 11/29/18 11/30/18 11/30/18 11/30/18 23:00 03:00 07:00 08:27 Temp 98.1 98.0 98.1 98.1 98.1 98.0 98.1 98.1 Pulse 85 86 77 77 Resp 16 16 18 18 B/P (MAP) 179/104 (129) 126/77 (93) 154/87 (109) 154/87 (109) Pulse Ox 90 91 92 92 O2 Delivery Room Air Room Air Room Air Room Air Intake and Output 11/29/18 11/29/18 11/30/18 14:59 22:59 06:59 Intake Total 850 ml Output Total 200 ml Balance 850 ml -200 ml SARAH CHURCH MD Nov 30, 2018 15:11
[2018-11-30] MEDS ORDERED: WARFARIN 4 MG TABLET. PO ONE (16:10)
[2018-12-01 03:00] VITALS: BP 179/95
[2018-12-01] MEDS: KETOROLAC 15 MG/ML VIAL. IV PRN (04:07)
[2018-12-01 05:13] LABS: PROTHROMBIN TIME PATIENT 20.9 SEC (11.7-14.0)
[2018-12-01 07:00] VITALS: BP 122/63
--- NOTE | 2018-12-01 09:03 | PDOC ---
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 History of Present Illness History of Present Illness not confused this AM LAying still, some pain but is okay with me not increasing pain meds Aware that we are screening for SNU come sunday PLAN: SW SNU Screen Sunday I told him to tell RN if he needs me to adjust/inc his pain med COnt PT.OT LAbs ok Vitals Vitals Vital Signs Date Time Temp Pulse Resp B/P (MAP) Pulse Ox O2 Delivery O2 Flow Rate FiO2 12/01/18 07:00 98.8 71 20 122/63 (82) 96 Room Air 98.8 Physical Exam General: Alert, Oriented X3, Cooperative, No acute distress Heart: Regular rate, No murmurs, Other Lungs: Clear, Other Abdomen: Normal bowel sounds, Soft, No tenderness, No hepatosplenomegaly, No masses Extremities: No clubbing, No cyanosis, No edema, Normal pulses, No tenderness/ swelling Skin: No rashes, No breakdown, No significant lesion Labs LABS Laboratory Tests Test 12/01/18 04:25 Prothrombin Time 20.9 SEC (11.7-14.0) Prothromb Time International Ratio 1.8 (0.8-1.1) Review of Systems Review of Systems some post op pain, no cp, no soa, no fevers, no abd pain, n.v Assessment and Plan Assessmemt and Plan Problems Medical Problems: (1) Intractable back pain Status: Acute (2) Lumbar compression fracture Status: Acute Comment Review of Relevant I have reviewed the following items alma delia (where applicable) has been applied. Labs Laboratory Tests Test 11/30/18 03:10 12/01/18 04:25 White Blood Count 6.6 x10^3/uL (4.0-11.0) Red Blood Count 4.36 x10^6/uL (4.30-5.70) Hemoglobin 13.9 g/dL (13.0-17.5) Hematocrit 42.1 % (39.0-53.0) Mean Corpuscular Volume 96 fL (79-100) Mean Corpuscular Hemoglobin 32 pg (25-35) Mean Corpuscular Hemoglobin Concent 33 g/dL (31-37) Red Cell Distribution Width 14.2 % (11.5-14.5) Platelet Count 192 x10^3/uL (140-400) Neutrophils (%) (Auto) 65 % (31-73) Lymphocytes (%) (Auto) 13 % (24-48) Monocytes (%) (Auto) 15 % (0-9) Eosinophils (%) (Auto) 7 % (0-3) Basophils (%) (Auto) 0 % (0-3) Neutrophils # (Auto) 4.3 x10^3uL (1.8-7.7) Lymphocytes # (Auto) 0.9 x10^3/uL (1.0-4.8) Monocytes # (Auto) 1.0 x10^3/uL (0.0-1.1) Eosinophils # (Auto) 0.4 x10^3/uL (0.0-0.7) Basophils # (Auto) 0.0 x10^3/uL (0.0-0.2) Prothrombin Time 19.7 SEC (11.7-14.0) 20.9 SEC (11.7-14.0) Prothromb Time International Ratio 1.7 (0.8-1.1) 1.8 (0.8-1.1) Sodium Level 140 mmol/L (136-145) Potassium Level 3.8 mmol/L (3.5-5.1) Chloride Level 104 mmol/L (98-107) Carbon Dioxide Level 26 mmol/L (21-32) Anion Gap 10 (6-14) Blood Urea Nitrogen 18 mg/dL (8-26) Creatinine 0.9 mg/dL (0.7-1.3) Estimated GFR (Cockcroft-Gault) 83.4 Glucose Level 135 mg/dL (70-99) Calcium Level 8.6 mg/dL (8.5-10.1) Laboratory Tests Test 12/01/18 04:25 Prothrombin Time 20.9 SEC (11.7-14.0) Prothromb Time International Ratio 1.8 (0.8-1.1) Medications Current Medications Ketorolac Tromethamine (Toradol 30mg Vial) 30 mg 1X ONCE IV Last administered on 11/27/18at 09:55; Start 11/27/18 at 09:15; Stop 11/27/18 at 09:16; Status DC Ondansetron HCl (Zofran) 4 mg PRN Q8HRS PRN IV NAUSEA/VOMITING; Start 11/27/18 at 11:15; Stop 11/27/18 at 13:09; Status DC Sodium Chloride 1,000 ml @ 100 mls/hr Q10H IV Last administered on 11/28/18at 06:16; Start 11/27/18 at 11:05; Stop 11/28/18 at 11:04; Status DC Acetaminophen (Tylenol) 650 mg PRN Q4HRS PRN PO FEVER; Start 11/27/18 at 11:15 ; Stop 11/28/18 at 11:14; Status DC Ondansetron HCl (Zofran) 4 mg PRN Q6HRS PRN IV NAUSEA/VOMITING; Start 11/27/18 at 13:15 Carbidopa/Levodopa (Sinemet 25/100) 1 tab TID PO ; Start 11/27/18 at 14:00; Stop 11/27/18 at 14:00; Status DC Vitamin D (Vitamin D3) 2,000 unit DAILY PO Last administered on 11/30/18at 10:26 ; Start 11/27/18 at 14:00 Famotidine (Pepcid) 20 mg BID PO Last administered on 11/30/18at 21:47; Start at 14:00 Non-Formulary Medication (Amlodipine Besylate/ Benazepril (Lotrel 5-20 Mg Capsule)) 1 cap DAILY PO ; Start 11/28/18 at 09:00; Stop 11/28/18 at 09:00; Status DC Fish Oil (Fish Oil) 1,000 mg DAILY PO Last administered on 11/30/18at 10:25; Start 11/27/18 at 14:00 Non-Formulary Medication (Garlic ) 1,000 mg DAILY PO ; Start 11/28/18 at 09:00; Status UNV Magnesium Oxide (Magnesium Oxide) 400 mg DAILY PO Last administered on at 10:26; Start 11/27/18 at 14:00 Pioglitazone HCl (Actos) 30 mg DAILY PO Last administered on 11/30/18at 10:26; Start 11/27/18 at 14:00 Non-Formulary Medication (Turmeric/ Turmeric Root Extract (Turmeric 500 mg Capsule)) 500 mg DAILY PO ; Start 11/28/18 at 09:00; Status UNV Non-Formulary Medication (Ubidecarenone (Coq-10)) 100 mg DAILY PO ; Start at 09:00; Status UNV Non-Formulary Medication (Warfarin Sodium (Coumadin)) 1 tab DAILY PO ; Start at 09:00; Stop 11/28/18 at 09:00; Status DC Insulin Human Lispro (HumaLOG) 0-9 UNITS TIDWMEALS SQ ; Start 11/27/18 at 17:00 ; Stop 11/27/18 at 17:00; Status DC Dextrose (Dextrose 50%-Water Syringe) 12.5 gm PRN Q15MIN PRN IV SEE COMMENTS; Start 11/27/18 at 13:15; Stop 11/27/18 at 13:31; Status DC Oxycodone/ Acetaminophen (Percocet 5/325) 1 tab PRN Q4HRS PRN PO PAIN; Start at 13:15; Stop 11/27/18 at 13:31; Status DC Morphine Sulfate (Morphine Sulfate) 2 mg PRN Q2HR PRN IV PAIN; Start 11/27/18 at 13:15; Stop 11/27/18 at 13:30; Status DC Ketorolac Tromethamine (Toradol 15mg Vial) 15 mg PRN Q6HRS PRN IV PAIN Last administered on 12/01/18at 04:07; Start 11/27/18 at 13:30; Stop 12/02/18 at 13:29 Cyclobenzaprine HCl (Flexeril) 10 mg PRN Q6HRS PRN PO MUSCLE SPASMS Last administered on 11/30/18at 23:11; Start 11/27/18 at 19:00 Bisacodyl (Dulcolax Tab) 10 mg DAILY PO ; Start 11/28/18 at 09:00 Ondansetron HCl (Zofran) 4 mg PRN Q6HRS PRN IV NAUSEA/VOMITING; Start 11/29/18 at 08:30; Stop 11/29/18 at 20:00; Status DC Ringer's Solution 1,000 ml @ 30 mls/hr Q24H IV ; Start 11/29/18 at 08:27; Stop 11/29/18 at 20:26; Status DC Prochlorperazine Edisylate (Compazine) 5 mg PACU PRN PRN IV NAUSEA, MRX1; Start 11/29/18 at 08:30; Stop 11/29/18 at 20:00; Status DC Midazolam HCl (Versed) 2 mg STK-MED ONCE .ROUTE ; Start 11/29/18 at 10:04; Stop 11/29/18 at 10:05; Status DC Ketamine HCl (Ketamine) 50 mg STK-MED ONCE .ROUTE ; Start 11/29/18 at 12:15; Stop 11/29/18 at 12:16; Status DC Lidocaine/Sodium Bicarbonate (Buffered Lidocaine 1%) 3 ml STK-MED ONCE .ROUTE ; Start 11/29/18 at 12:34; Stop 11/29/18 at 12:35; Status DC Iohexol (Omnipaque 240 Mg/ml) 50 ml STK-MED ONCE .ROUTE ; Start 11/29/18 at 12: 35; Stop 11/29/18 at 12:36; Status DC Cefazolin Sodium 50 ml @ As Directed STK-MED ONCE IV ; Start 11/29/18 at 12:35; Stop 11/29/18 at 12:36; Status DC Warfarin Sodium (Coumadin Per Pharmacy) 1 each PRN DAILY PRN MC SEE COMMENTS Last administered on 11/30/18at 16:14; Start 11/29/18 at 15:45 Enoxaparin Sodium (Lovenox Per Pharmacy Treatment Dosing) 1 each PRN DAILY PRN MC SEE COMMENTS; Start 11/29/18 at 15:45 Enoxaparin Sodium (Lovenox 120mg Syringe) 120 mg Q12HR SQ Last administered on 11/30/18at 21:47; Start 11/29/18 at 16:00 Warfarin Sodium (Coumadin) 4 mg 1X WARF ONCE PO Last administered on at 17:38; Start 11/29/18 at 16:00; Stop 11/29/18 at 16:46; Status DC Warfarin Sodium (Coumadin) 4 mg 1X WARF ONCE PO Last administered on 3/30/ 19at 16:53; Start 11/30/18 at 16:10; Stop 11/30/18 at 16:11; Status DC Active Scripts Active Coumadin (Warfarin Sodium) 4 Mg Tablet 1 Tab PO DAILY Famotidine 20 Mg Tablet 20 Mg PO BID Reported Actos (Pioglitazone Hcl) 30 Mg Tablet 30 Mg PO DAILY Lotrel 5-20 Mg Capsule (Amlodipine Besylate/Benazepril) 1 Each Capsule 1 Cap PO DAILY Sinemet 25-100 Mg Tablet (Carbidopa/Levodopa) 1 Each Tablet 1 Tab PO TID Garlic 1,000 Mg Capsule 1,000 Mg PO DAILY Vitamin D3 (Cholecalciferol (Vitamin D3)) 1,000 Unit Tablet 2,000 Unit PO DAILY Coq-10 (Ubidecarenone) 100 Mg Capsule 100 Mg PO DAILY Magnesium (Magnesium Oxide) 400 Mg Capsule 400 Mg PO DAILY Turmeric 500 mg Capsule (Turmeric/Turmeric Root Extract) 1 Each Capsule 500 Mg PO DAILY Fish Oil 1,200 Mg Fish Oil (Fish Oil/Dha/Epa) 1 Each Capsule 1,200 Mg PO DAILY Vitals/I & O Vital Sign - Last 24 Hours 11/30/18 11/30/18 11/30/18 11/30/18 11:00 15:00 19:00 20:00 Temp 98.0 98.0 97.5 98.0 98.0 97.5 Pulse 73 80 95 Resp 18 18 18 B/P (MAP) 132/83 (99) 137/84 (101) 138/99 (112) Pulse Ox 94 94 94 O2 Delivery Room Air Room Air Room Air 11/30/18 12/01/18 12/01/18 23:00 03:00 07:00 Temp 97.4 99.7 98.8 97.4 99.7 98.8 Pulse 94 91 71 Resp 20 20 20 B/P (MAP) 146/97 (113) 179/95 (123) 122/63 (82) Pulse Ox 93 93 96 O2 Delivery Room Air Intake and Output 11/30/18 11/30/18 12/01/18 14:59 22:59 06:59 Intake Total 0 ml Balance 0 ml NATACHA MARI MD Dec 01, 2018 09:03
[2018-12-01] MEDS ORDERED: LABETALOL 20 MG/4 ML DISP.SYRIN. IVP PRN (09:15)
[2018-12-01] MEDS ORDERED: ACETAMINOPHEN 500 MG TABLET PO PRN (09:15)
[2018-12-01] MEDS: BISACODYL 5 MG TABLET.DR. PO SCH (09:36)
[2018-12-01] MEDS: PIOGLITAZONE 15 MG TABLET. PO SCH (09:36)
[2018-12-01] MEDS: CHOLECALCIFEROL (VITAMIN D3) 1,000 UNIT TABLET PO SCH (09:36)
[2018-12-01] MEDS: MAGNESIUM OXIDE 400 MG TABLET PO SCH (09:37)
[2018-12-01] MEDS: OMEGA-3 FATTY ACIDS/FISH OIL 1,000 MG CAPSULE. PO SCH (09:37)
[2018-12-01] MEDS: FAMOTIDINE 20 MG TABLET. PO SCH ×2 (09:37→21:23)
--- NOTE | 2018-12-01 10:13 | NUR ---
This nurse ordered special surface bed for pt. Took picture of bottom and left arm. Pic in chart. Placed purple wedge behind pt also.
[2018-12-01 11:00] VITALS: BP 133/90
--- NOTE | 2018-12-01 12:55 | NUR ---
Pharmacy Warfarin Dosing Note S: Pharmacy consulted to assist with anticoagulation therapy O: RACHEL WISE is a 72 year old M with h/o PE in February 2018 LABS: Last INR: 1.8 Last HGB: 13.9 Last HCT: 42 Last PLT: 192 Last dose of 4 mg given on 11/30/18 at 1611 A:INR of 1.8 is below desired range. Target range for this patient is: 2 - 3 P: Warfarin dose: 4 mg Today at 1600 Bridge Therapy: Enoxaparin 1 mg/kg q12h Next INR due 12/02/18 Pharmacy anticoagulation service will continue to follow. ROBINA VZA [facility], 12/01/18 [id number]
[2018-12-01] MEDS ORDERED: WARFARIN 4 MG TABLET. PO ONE (16:00)
[2018-12-01 16:05] VITALS: BP 135/88
[2018-12-01] MEDS: VITAMIN B12,B9,B6 COMPLEX 1 TABLET. PO SCH (18:31)
[2018-12-01 19:00] VITALS: BP 109/72
--- NOTE | 2018-12-01 19:24 | NUR ---
Pt family is not wanting pt to have any pain medicine. Pt is sensitive to medicine. They want him to be awake for tomorrow and work with therapy for the SNF screen.
[2018-12-01] MEDS ORDERED: PATCH REMOVAL. MC SCH (21:00)
[2018-12-01 23:00] VITALS: BP 105/67
[2018-12-02 03:00] VITALS: BP 105/75
[2018-12-02 04:28] LABS: PROTHROMBIN TIME PATIENT 21.9 SEC (11.7-14.0)
[2018-12-02 07:00] VITALS: BP 150/89
--- NOTE | 2018-12-02 08:30 | PDOC ---
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 History of Present Illness History of Present Illness This is a 72-year-old male, apparently had a mechanical fall on 11/25/2018, and he had probable new L3 vertebral body compression fracture s/p kyphoplasty with IR. 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 He lives with his , has a walker, but does not use. He had been recovering from a recent kyphoplasty done and started walking. He has been on Coumadin after he had saddle pulmonary emboli in 02/2018. The patient also was noted with severe compression fracture of T12 vertebral body and moderate compression changes of L2 vertebral body with kyphoplasty changes and acute compression fracture of L3 vertebral body without bony retropulsion and moderate compression fracture of T5 vertebral body, multilevel degenerative joint disease and degenerative disk disease of thoracic and lumbar vertebrae. He was apparently having some urinary incontinence prior to the present hospitalization Overnight had hypoxia <88%, required nocturnal O2. His notes he does have CPAP at home, full large face mask with [id number] setting. Still a little confused this AM, but mental status is slightly improved, though he did pull his IV. Had some left groin pain today that was severe 10/10 as though a needle is stabbing him. Unaware about his last BM, no SOB or chest pain. PLAN: CPAP overnight, full large face mask with [id number] setting SW SNU Screen today Cont PT.OT Labs ok Vitals Vitals Vital Signs Date Time Temp Pulse Resp B/P (MAP) Pulse Ox O2 Delivery O2 Flow Rate FiO2 12/02/18 07:00 98.2 104 22 150/89 (109) 92 Nasal Cannula 2.5 98.2 Physical Exam General: Alert, Cooperative, No acute distress Heart: Regular rate, No murmurs, Other Lungs: Clear, Other Abdomen: Normal bowel sounds, Soft, No tenderness, No hepatosplenomegaly, No masses Extremities: No clubbing, No cyanosis, No edema, Normal pulses, No tenderness/ swelling Skin: No rashes, No breakdown, No significant lesion Labs LABS Laboratory Tests Test 12/02/18 03:05 Prothrombin Time 21.9 SEC (11.7-14.0) Prothromb Time International Ratio 1.9 (0.8-1.1) Ammonia < 10 mcmol/L (11-34) Assessment and Plan Assessmemt and Plan Problems Medical Problems: (1) Intractable back pain Status: Acute (2) Lumbar compression fracture Status: Acute Comment Review of Relevant I have reviewed the following items alma delia (where applicable) has been applied. Labs Laboratory Tests Test 12/01/18 04:25 12/02/18 03:05 Prothrombin Time 20.9 SEC (11.7-14.0) 21.9 SEC (11.7-14.0) Prothromb Time International Ratio 1.8 (0.8-1.1) 1.9 (0.8-1.1) Ammonia < 10 mcmol/L (11-34) Laboratory Tests Test 12/02/18 03:05 Prothrombin Time 21.9 SEC (11.7-14.0) Prothromb Time International Ratio 1.9 (0.8-1.1) Ammonia < 10 mcmol/L (11-34) Medications Current Medications Ketorolac Tromethamine (Toradol 30mg Vial) 30 mg 1X ONCE IV Last administered on 11/27/18at 09:55; Start 11/27/18 at 09:15; Stop 11/27/18 at 09:16; Status DC Ondansetron HCl (Zofran) 4 mg PRN Q8HRS PRN IV NAUSEA/VOMITING; Start 11/27/18 at 11:15; Stop 11/27/18 at 13:09; Status DC Sodium Chloride 1,000 ml @ 100 mls/hr Q10H IV Last administered on 11/28/18at 06:16; Start 11/27/18 at 11:05; Stop 11/28/18 at 11:04; Status DC Acetaminophen (Tylenol) 650 mg PRN Q4HRS PRN PO FEVER; Start 11/27/18 at 11:15 ; Stop 11/28/18 at 11:14; Status DC Ondansetron HCl (Zofran) 4 mg PRN Q6HRS PRN IV NAUSEA/VOMITING; Start 11/27/18 at 13:15 Carbidopa/Levodopa (Sinemet 25/100) 1 tab TID PO ; Start 11/27/18 at 14:00; Stop 11/27/18 at 14:00; Status DC Vitamin D (Vitamin D3) 2,000 unit DAILY PO Last administered on 12/01/18at 09:36 ; Start 11/27/18 at 14:00 Famotidine (Pepcid) 20 mg BID PO Last administered on 12/01/18at 21:23; Start at 14:00 Non-Formulary Medication (Amlodipine Besylate/ Benazepril (Lotrel 5-20 Mg Capsule)) 1 cap DAILY PO ; Start 11/28/18 at 09:00; Stop 11/28/18 at 09:00; Status DC Fish Oil (Fish Oil) 1,000 mg DAILY PO Last administered on 12/01/18at 09:37; Start 11/27/18 at 14:00 Non-Formulary Medication (Garlic ) 1,000 mg DAILY PO ; Start 11/28/18 at 09:00; Status UNV Magnesium Oxide (Magnesium Oxide) 400 mg DAILY PO Last administered on at 09:37; Start 11/27/18 at 14:00 Pioglitazone HCl (Actos) 30 mg DAILY PO Last administered on 12/01/18at 09:36; Start 11/27/18 at 14:00 Non-Formulary Medication (Turmeric/ Turmeric Root Extract (Turmeric 500 mg Capsule)) 500 mg DAILY PO ; Start 11/28/18 at 09:00; Status UNV Non-Formulary Medication (Ubidecarenone (Coq-10)) 100 mg DAILY PO ; Start at 09:00; Status UNV Non-Formulary Medication (Warfarin Sodium (Coumadin)) 1 tab DAILY PO ; Start at 09:00; Stop 11/28/18 at 09:00; Status DC Insulin Human Lispro (HumaLOG) 0-9 UNITS TIDWMEALS SQ ; Start 11/27/18 at 17:00 ; Stop 11/27/18 at 17:00; Status DC Dextrose (Dextrose 50%-Water Syringe) 12.5 gm PRN Q15MIN PRN IV SEE COMMENTS; Start 11/27/18 at 13:15; Stop 11/27/18 at 13:31; Status DC Oxycodone/ Acetaminophen (Percocet 5/325) 1 tab PRN Q4HRS PRN PO PAIN; Start at 13:15; Stop 11/27/18 at 13:31; Status DC Morphine Sulfate (Morphine Sulfate) 2 mg PRN Q2HR PRN IV PAIN; Start 11/27/18 at 13:15; Stop 11/27/18 at 13:30; Status DC Ketorolac Tromethamine (Toradol 15mg Vial) 15 mg PRN Q6HRS PRN IV PAIN Last administered on 12/01/18at 04:07; Start 11/27/18 at 13:30; Stop 12/02/18 at 13:29 Cyclobenzaprine HCl (Flexeril) 10 mg PRN Q6HRS PRN PO MUSCLE SPASMS Last administered on 11/30/18at 23:11; Start 11/27/18 at 19:00; Stop 12/01/18 at 17:33 ; Status DC Bisacodyl (Dulcolax Tab) 10 mg DAILY PO Last administered on 12/01/18at 09:36; Start 11/28/18 at 09:00 Ondansetron HCl (Zofran) 4 mg PRN Q6HRS PRN IV NAUSEA/VOMITING; Start 11/29/18 at 08:30; Stop 11/29/18 at 20:00; Status DC Ringer's Solution 1,000 ml @ 30 mls/hr Q24H IV ; Start 11/29/18 at 08:27; Stop 11/29/18 at 20:26; Status DC Prochlorperazine Edisylate (Compazine) 5 mg PACU PRN PRN IV NAUSEA, MRX1; Start 11/29/18 at 08:30; Stop 11/29/18 at 20:00; Status DC Midazolam HCl (Versed) 2 mg STK-MED ONCE .ROUTE ; Start 11/29/18 at 10:04; Stop 11/29/18 at 10:05; Status DC Ketamine HCl (Ketamine) 50 mg STK-MED ONCE .ROUTE ; Start 11/29/18 at 12:15; Stop 11/29/18 at 12:16; Status DC Lidocaine/Sodium Bicarbonate (Buffered Lidocaine 1%) 3 ml STK-MED ONCE .ROUTE ; Start 11/29/18 at 12:34; Stop 11/29/18 at 12:35; Status DC Iohexol (Omnipaque 240 Mg/ml) 50 ml STK-MED ONCE .ROUTE ; Start 11/29/18 at 12: 35; Stop 11/29/18 at 12:36; Status DC Cefazolin Sodium 50 ml @ As Directed STK-MED ONCE IV ; Start 11/29/18 at 12:35; Stop 11/29/18 at 12:36; Status DC Warfarin Sodium (Coumadin Per Pharmacy) 1 each PRN DAILY PRN MC SEE COMMENTS Last administered on 12/01/18at 12:55; Start 11/29/18 at 15:45 Enoxaparin Sodium (Lovenox Per Pharmacy Treatment Dosing) 1 each PRN DAILY PRN MC SEE COMMENTS; Start 11/29/18 at 15:45 Enoxaparin Sodium (Lovenox 120mg Syringe) 120 mg Q12HR SQ Last administered on 12/01/18at 21:23; Start 11/29/18 at 16:00 Warfarin Sodium (Coumadin) 4 mg 1X WARF ONCE PO Last administered on at 17:38; Start 11/29/18 at 16:00; Stop 11/29/18 at 16:46; Status DC Warfarin Sodium (Coumadin) 4 mg 1X WARF ONCE PO Last administered on at 16:53; Start 11/30/18 at 16:10; Stop 11/30/18 at 16:11; Status DC Labetalol HCl (Normodyne Iv Push) 20 mg PRN Q2HR PRN IVP HYPERTENSION, SEE COMMENTS; Start 12/01/18 at 09:15 Lidocaine (Lidoderm) 1 patch DAILY TD ; Start 12/02/18 at 09:00 Miscellaneous (Lidoderm Patch Removal) 1 ea QHS MC Last administered on at 21:00; Start 12/01/18 at 21:00 Acetaminophen (Tylenol) 500 mg PRN Q6HRS PRN PO MILD PAIN / TEMP; Start at 09:15 Warfarin Sodium (Coumadin) 4 mg 1X WARF ONCE PO Last administered on at 17:42; Start 12/01/18 at 16:00; Stop 12/01/18 at 16:01; Status DC Vitamin B Complex (Folbic Tablet) 1 tab DAILY PO Last administered on at 18:31; Start 12/01/18 at 18:15 Active Scripts Active Coumadin (Warfarin Sodium) 4 Mg Tablet 1 Tab PO DAILY Famotidine 20 Mg Tablet 20 Mg PO BID Reported Actos (Pioglitazone Hcl) 30 Mg Tablet 30 Mg PO DAILY Lotrel 5-20 Mg Capsule (Amlodipine Besylate/Benazepril) 1 Each Capsule 1 Cap PO DAILY Sinemet 25-100 Mg Tablet (Carbidopa/Levodopa) 1 Each Tablet 1 Tab PO TID Garlic 1,000 Mg Capsule 1,000 Mg PO DAILY Vitamin D3 (Cholecalciferol (Vitamin D3)) 1,000 Unit Tablet 2,000 Unit PO DAILY Coq-10 (Ubidecarenone) 100 Mg Capsule 100 Mg PO DAILY Magnesium (Magnesium Oxide) 400 Mg Capsule 400 Mg PO DAILY Turmeric 500 mg Capsule (Turmeric/Turmeric Root Extract) 1 Each Capsule 500 Mg PO DAILY Fish Oil 1,200 Mg Fish Oil (Fish Oil/Dha/Epa) 1 Each Capsule 1,200 Mg PO DAILY Vitals/I & O Vital Sign - Last 24 Hours 12/01/18 12/01/18 12/01/18 12/01/18 11:00 15:00 16:05 19:00 Temp 98.4 97.9 99.6 98.4 97.9 99.6 Pulse 87 104 88 Resp 20 18 18 B/P (MAP) 133/90 (104) 135/88 (104) 109/72 (84) Pulse Ox 94 91 90 O2 Delivery Room Air Room Air Room Air Room Air 12/01/18 12/01/18 12/02/18 12/02/18 20:00 23:00 03:00 07:00 Temp 98.8 98.2 98.2 98.8 98.2 98.2 Pulse 92 97 104 Resp 18 18 22 B/P (MAP) 105/67 (80) 105/75 (85) 150/89 (109) Pulse Ox 95 91 92 O2 Delivery Room Air Nasal Cannula Room Air Nasal Cannula O2 Flow Rate 2.5 2.5 Intake and Output 12/01/18 12/01/18 12/02/18 15:00 23:00 07:00 Intake Total 100 ml 100 ml Balance 100 ml 100 ml ILDA MCGUIRE MD Dec 02, 2018 08:30
[2018-12-02] MEDS ORDERED: LIDOCAINE (700MG/PATCH) PATCH. TD SCH (09:00)
[2018-12-02] MEDS: CHOLECALCIFEROL (VITAMIN D3) 1,000 UNIT TABLET PO SCH (09:20)
[2018-12-02] MEDS: BISACODYL 5 MG TABLET.DR. PO SCH (09:21)
[2018-12-02] MEDS: MAGNESIUM OXIDE 400 MG TABLET PO SCH (09:21)
[2018-12-02] MEDS: OMEGA-3 FATTY ACIDS/FISH OIL 1,000 MG CAPSULE. PO SCH (09:21)
[2018-12-02] MEDS: FAMOTIDINE 20 MG TABLET. PO SCH (09:21)
[2018-12-02] MEDS: PIOGLITAZONE 15 MG TABLET. PO SCH (09:21)
[2018-12-02] MEDS: VITAMIN B12,B9,B6 COMPLEX 1 TABLET. PO SCH (09:21)
--- NOTE | 2018-12-02 10:00 | PDOC ---
PROGRESS NOTES Subjective Subjective No new complaints. Objective Objective Vital Signs Date Time Temp Pulse Resp B/P (MAP) Pulse Ox O2 Delivery O2 Flow Rate FiO2 12/02/18 07:00 98.2 104 22 150/89 (109) 92 Nasal Cannula 2.5 98.2 Intake and Output 12/02/18 06:59 Intake Total 200 ml Balance 200 ml Intake Oral 200 ml # Voids 1 Physical Exam Physical Exam He is awake but still somewhat disoriented and he requires significant help with his mobility and self care.I spoke to his and therapy. Assessment Assessment Problems Medical Problems: (1) Intractable back pain Status: Acute (2) Lumbar compression fracture Status: Acute Plan Plan of Care To SNF for continued care when medically stable. Comment Review of Relevant I have reviewed the following items alma delia (where applicable) has been applied. Labs Laboratory Tests Test 12/01/18 04:25 12/02/18 03:05 Prothrombin Time 20.9 SEC (11.7-14.0) 21.9 SEC (11.7-14.0) Prothromb Time International Ratio 1.8 (0.8-1.1) 1.9 (0.8-1.1) Ammonia < 10 mcmol/L (11-34) Laboratory Tests Test 12/02/18 03:05 Prothrombin Time 21.9 SEC (11.7-14.0) Prothromb Time International Ratio 1.9 (0.8-1.1) Ammonia < 10 mcmol/L (11-34) Medications Current Medications Ketorolac Tromethamine (Toradol 30mg Vial) 30 mg 1X ONCE IV Last administered on 11/27/18at 09:55; Start 11/27/18 at 09:15; Stop 11/27/18 at 09:16; Status DC Ondansetron HCl (Zofran) 4 mg PRN Q8HRS PRN IV NAUSEA/VOMITING; Start 11/27/18 at 11:15; Stop 11/27/18 at 13:09; Status DC Sodium Chloride 1,000 ml @ 100 mls/hr Q10H IV Last administered on 11/28/18at 06:16; Start 11/27/18 at 11:05; Stop 11/28/18 at 11:04; Status DC Acetaminophen (Tylenol) 650 mg PRN Q4HRS PRN PO FEVER; Start 11/27/18 at 11:15 ; Stop 11/28/18 at 11:14; Status DC Ondansetron HCl (Zofran) 4 mg PRN Q6HRS PRN IV NAUSEA/VOMITING; Start 11/27/18 at 13:15 Carbidopa/Levodopa (Sinemet 25/100) 1 tab TID PO ; Start 11/27/18 at 14:00; Stop 11/27/18 at 14:00; Status DC Vitamin D (Vitamin D3) 2,000 unit DAILY PO Last administered on 12/02/18at 09:20 ; Start 11/27/18 at 14:00 Famotidine (Pepcid) 20 mg BID PO Last administered on 12/02/18at 09:21; Start at 14:00 Non-Formulary Medication (Amlodipine Besylate/ Benazepril (Lotrel 5-20 Mg Capsule)) 1 cap DAILY PO ; Start 11/28/18 at 09:00; Stop 11/28/18 at 09:00; Status DC Fish Oil (Fish Oil) 1,000 mg DAILY PO Last administered on 12/02/18at 09:21; Start 11/27/18 at 14:00 Non-Formulary Medication (Garlic ) 1,000 mg DAILY PO ; Start 11/28/18 at 09:00; Status UNV Magnesium Oxide (Magnesium Oxide) 400 mg DAILY PO Last administered on at 09:21; Start 11/27/18 at 14:00 Pioglitazone HCl (Actos) 30 mg DAILY PO Last administered on 12/02/18at 09:21; Start 11/27/18 at 14:00 Non-Formulary Medication (Turmeric/ Turmeric Root Extract (Turmeric 500 mg Capsule)) 500 mg DAILY PO ; Start 11/28/18 at 09:00; Status UNV Non-Formulary Medication (Ubidecarenone (Coq-10)) 100 mg DAILY PO ; Start at 09:00; Status UNV Non-Formulary Medication (Warfarin Sodium (Coumadin)) 1 tab DAILY PO ; Start at 09:00; Stop 11/28/18 at 09:00; Status DC Insulin Human Lispro (HumaLOG) 0-9 UNITS TIDWMEALS SQ ; Start 11/27/18 at 17:00 ; Stop 11/27/18 at 17:00; Status DC Dextrose (Dextrose 50%-Water Syringe) 12.5 gm PRN Q15MIN PRN IV SEE COMMENTS; Start 11/27/18 at 13:15; Stop 11/27/18 at 13:31; Status DC Oxycodone/ Acetaminophen (Percocet 5/325) 1 tab PRN Q4HRS PRN PO PAIN; Start at 13:15; Stop 11/27/18 at 13:31; Status DC Morphine Sulfate (Morphine Sulfate) 2 mg PRN Q2HR PRN IV PAIN; Start 11/27/18 at 13:15; Stop 11/27/18 at 13:30; Status DC Ketorolac Tromethamine (Toradol 15mg Vial) 15 mg PRN Q6HRS PRN IV PAIN Last administered on 12/01/18at 04:07; Start 11/27/18 at 13:30; Stop 12/02/18 at 13:29 Cyclobenzaprine HCl (Flexeril) 10 mg PRN Q6HRS PRN PO MUSCLE SPASMS Last administered on 11/30/18at 23:11; Start 11/27/18 at 19:00; Stop 12/01/18 at 17:33 ; Status DC Bisacodyl (Dulcolax Tab) 10 mg DAILY PO Last administered on 12/02/18at 09:21; Start 11/28/18 at 09:00 Ondansetron HCl (Zofran) 4 mg PRN Q6HRS PRN IV NAUSEA/VOMITING; Start 11/29/18 at 08:30; Stop 11/29/18 at 20:00; Status DC Ringer's Solution 1,000 ml @ 30 mls/hr Q24H IV ; Start 11/29/18 at 08:27; Stop 11/29/18 at 20:26; Status DC Prochlorperazine Edisylate (Compazine) 5 mg PACU PRN PRN IV NAUSEA, MRX1; Start 11/29/18 at 08:30; Stop 11/29/18 at 20:00; Status DC Midazolam HCl (Versed) 2 mg STK-MED ONCE .ROUTE ; Start 11/29/18 at 10:04; Stop 11/29/18 at 10:05; Status DC Ketamine HCl (Ketamine) 50 mg STK-MED ONCE .ROUTE ; Start 11/29/18 at 12:15; Stop 11/29/18 at 12:16; Status DC Lidocaine/Sodium Bicarbonate (Buffered Lidocaine 1%) 3 ml STK-MED ONCE .ROUTE ; Start 11/29/18 at 12:34; Stop 11/29/18 at 12:35; Status DC Iohexol (Omnipaque 240 Mg/ml) 50 ml STK-MED ONCE .ROUTE ; Start 11/29/18 at 12: 35; Stop 11/29/18 at 12:36; Status DC Cefazolin Sodium 50 ml @ As Directed STK-MED ONCE IV ; Start 11/29/18 at 12:35; Stop 11/29/18 at 12:36; Status DC Warfarin Sodium (Coumadin Per Pharmacy) 1 each PRN DAILY PRN MC SEE COMMENTS Last administered on 12/01/18at 12:55; Start 11/29/18 at 15:45 Enoxaparin Sodium (Lovenox Per Pharmacy Treatment Dosing) 1 each PRN DAILY PRN MC SEE COMMENTS; Start 11/29/18 at 15:45 Enoxaparin Sodium (Lovenox 120mg Syringe) 120 mg Q12HR SQ Last administered on 12/02/18at 09:21; Start 11/29/18 at 16:00 Warfarin Sodium (Coumadin) 4 mg 1X WARF ONCE PO Last administered on at 17:38; Start 11/29/18 at 16:00; Stop 11/29/18 at 16:46; Status DC Warfarin Sodium (Coumadin) 4 mg 1X WARF ONCE PO Last administered on at 16:53; Start 11/30/18 at 16:10; Stop 11/30/18 at 16:11; Status DC Labetalol HCl (Normodyne Iv Push) 20 mg PRN Q2HR PRN IVP HYPERTENSION, SEE COMMENTS; Start 12/01/18 at 09:15 Lidocaine (Lidoderm) 1 patch DAILY TD Last administered on 12/02/18at 09:19; Start 12/02/18 at 09:00 Miscellaneous (Lidoderm Patch Removal) 1 ea QHS MC Last administered on at 21:00; Start 12/01/18 at 21:00 Acetaminophen (Tylenol) 500 mg PRN Q6HRS PRN PO MILD PAIN / TEMP Last administered on 12/02/18at 09:21; Start 12/01/18 at 09:15 Warfarin Sodium (Coumadin) 4 mg 1X WARF ONCE PO Last administered on at 17:42; Start 12/01/18 at 16:00; Stop 12/01/18 at 16:01; Status DC Vitamin B Complex (Folbic Tablet) 1 tab DAILY PO Last administered on 12/02/18at 09:21; Start 12/01/18 at 18:15 Active Scripts Active Coumadin (Warfarin Sodium) 4 Mg Tablet 1 Tab PO DAILY Famotidine 20 Mg Tablet 20 Mg PO BID Reported Actos (Pioglitazone Hcl) 30 Mg Tablet 30 Mg PO DAILY Lotrel 5-20 Mg Capsule (Amlodipine Besylate/Benazepril) 1 Each Capsule 1 Cap PO DAILY Sinemet 25-100 Mg Tablet (Carbidopa/Levodopa) 1 Each Tablet 1 Tab PO TID Garlic 1,000 Mg Capsule 1,000 Mg PO DAILY Vitamin D3 (Cholecalciferol (Vitamin D3)) 1,000 Unit Tablet 2,000 Unit PO DAILY Coq-10 (Ubidecarenone) 100 Mg Capsule 100 Mg PO DAILY Magnesium (Magnesium Oxide) 400 Mg Capsule 400 Mg PO DAILY Turmeric 500 mg Capsule (Turmeric/Turmeric Root Extract) 1 Each Capsule 500 Mg PO DAILY Fish Oil 1,200 Mg Fish Oil (Fish Oil/Dha/Epa) 1 Each Capsule 1,200 Mg PO DAILY Vitals/I & O Vital Sign - Last 24 Hours 12/01/18 12/01/18 12/01/18 12/01/18 11:00 15:00 16:05 19:00 Temp 98.4 97.9 99.6 98.4 97.9 99.6 Pulse 87 104 88 Resp 20 18 18 B/P (MAP) 133/90 (104) 135/88 (104) 109/72 (84) Pulse Ox 94 91 90 O2 Delivery Room Air Room Air Room Air Room Air 12/01/18 12/01/18 12/02/18 12/02/18 20:00 23:00 03:00 07:00 Temp 98.8 98.2 98.2 98.8 98.2 98.2 Pulse 92 97 104 Resp 18 18 22 B/P (MAP) 105/67 (80) 105/75 (85) 150/89 (109) Pulse Ox 95 91 92 O2 Delivery Room Air Nasal Cannula Room Air Nasal Cannula O2 Flow Rate 2.5 2.5 Intake and Output 12/01/18 12/01/18 12/02/18 14:59 22:59 06:59 Intake Total 100 ml 100 ml Balance 100 ml 100 ml LEONARD DIAZ MD Dec 02, 2018 10:00
[2018-12-02 11:00] VITALS: BP 78/52
[2018-12-02 11:05] VITALS: BP 85/54
--- NOTE | 2018-12-02 11:39 | NUR ---
ARACELI following. Discussed with RN. ARACELI met with pt's , Em ([phone]) to discuss discharge planning and Dr. Pickett's recommendation of SNU. Em would like referral sent to [facility] (ph: [phone], fax: [phone]). ARACELI phoned and faxed referral, pt is ready to discharge today. RN notified.
[2018-12-02 15:00] VITALS: BP 94/59
[2018-12-02] MEDS ORDERED: CYAN1TAB19 PO (15:18)
[2018-12-02] MEDS ORDERED: HYDR-2761 PO (15:18)
[2018-12-02] MEDS ORDERED: LIDO700A39 TD (15:18)
[2018-12-02] MEDS ORDERED: DOCU-109 PO (15:18)
--- NOTE | 2018-12-02 15:20 | SNU/HH DC ---
DISCHARGE ORDERS DISCHARGE INFORMATION: DISCHARGE DATE: Dec 02, 2018 FINAL DIAGNOSIS Problems Medical Problems: (1) Intractable back pain Status: Acute (2) Lumbar compression fracture Status: Acute CONDITION ON DISCHARGE: Stable CODE STATUS: Code Status: Full HALFWAY: SNF STAY <30 DAYS: Yes POST DISCHARGE ORDERS: ACTIVITY ORDERS: Activity as tolerated, Other ROM activity WEIGHT BEARING STATUS: As tolerated DIET AFTER DISCHARGE: Cardiac WOUND/INCISION CARE: Ice to area for comfort FOLLOW-UP: LAB ORDERS FOR FOLLOW-UP: INR q 3 days ANTICOAGULATION F/U NEEDED: INR Q 3 days TREATMENT/EQUIPMENT ORDERS: RESPIRATORY EQUIPMENT NEEDED: Oxygen (Bleed into CPAP 1L), CPAP (12cm H2O - large facemask nightly) Physical Therapy For: Evalulation/Treatment Occupational Therapy For: Evaluation/Treatment DISCHARGE MEDICATIONS: Home Meds Active Scripts Hydrocodone Bit/Acetaminophen (HYDROCODONE-APAP 5-325 ) 1 Tab Tablet, 1 TAB PO PRN Q6HRS PRN for PAIN for 6 Days, #18 TAB 0 Refills Prov:ILDA MCGUIRE MD 12/02/18 Docusate Sodium (COLACE) 100 Mg Capsule, 1 CAP PO BID for constipation for 30 Days, #60 CAP Prov:ILDA MCGUIRE MD 12/02/18 Cyanocobalamin/Fa/Pyridoxine (FOLBIC TABLET) 1 Each Tablet, 1 TAB PO DAILY for Hypercoagulable for 30 Days, #30 TAB Prov:ILDA MCGUIRE MD 12/02/18 Lidocaine (Lidocaine) 1 Each Adh..patch, 1 PATCH TD DAILY for back pain for 30 Days, #30 PATCH Prov:ILDA MCGUIRE MD 12/02/18 Warfarin Sodium (COUMADIN) 4 Mg Tablet, 1 TAB PO DAILY, #30 TAB Prov:SARAH CHURCH MD 02/21/18 Famotidine (FAMOTIDINE) 20 Mg Tablet, 20 MG PO BID, #60 TAB Prov:SARAH CHURCH MD 02/21/18 Reported Medications Pioglitazone Hcl (ACTOS) 30 Mg Tablet, 30 MG PO DAILY, TAB 02/19/18 Amlodipine Besylate/Benazepril (LOTREL 5-20 MG CAPSULE) 1 Each Capsule, 1 CAP PO DAILY, #30 CAP 5 Refills 02/19/18 Carbidopa/Levodopa (SINEMET 25-100 MG TABLET) 1 Each Tablet, 1 TAB PO TID, TAB 02/19/18 Garlic (GARLIC) 1,000 Mg Capsule, 1000 MG PO DAILY, CAP 02/19/18 Cholecalciferol (Vitamin D3) (VITAMIN D3) 1,000 Unit Tablet, 2000 UNIT PO DAILY , TAB 02/19/18 Ubidecarenone (COQ-10) 100 Mg Capsule, 100 MG PO DAILY, CAP 02/19/18 Magnesium Oxide (MAGNESIUM) 400 Mg Capsule, 400 MG PO DAILY, CAP 02/19/18 Turmeric/Turmeric Root Extract (Turmeric 500 mg Capsule) 1 Each Capsule, 500 MG PO DAILY, CAP 02/19/18 Fish Oil/Dha/Epa (FISH OIL 1,200 MG FISH OIL) 1 Each Capsule, 1200 MG PO DAILY, CAP 02/19/18 ILDA MCGUIRE MD Dec 02, 2018 15:20
--- NOTE | 2018-12-02 15:21 | PDOC3 ---
Discharge Summary Visit Information Date of Admission: Nov 27, 2018 Date of Discharge: Dec 02, 2018 Admitting Diagnosis: Lumbar fracture Final Diagnosis Problems Medical Problems: (1) Intractable back pain Status: Acute (2) Lumbar compression fracture Status: Acute Brief Hospital Course Allergies Allergies Coded Allergies Type Severity Reaction Last Updated Verified fentanyl Adverse Reaction Severe HALLUCINATES 02/18/18 Yes hydromorphone Adverse Reaction Severe HALLUCINATES 02/18/18 Yes Vital Signs Vital Signs Date Time Temp Pulse Resp B/P (MAP) Pulse Ox O2 Delivery O2 Flow Rate FiO2 12/02/18 11:05 85/54 (64) Room Air 12/02/18 11:00 97.6 74 20 96 2.5 97.6 Lab Results Laboratory Tests Test 12/01/18 04:25 12/02/18 03:05 Prothrombin Time 20.9 SEC (11.7-14.0) 21.9 SEC (11.7-14.0) Prothromb Time International Ratio 1.8 (0.8-1.1) 1.9 (0.8-1.1) Ammonia < 10 mcmol/L (11-34) Laboratory Tests Test 12/02/18 03:05 Prothrombin Time 21.9 SEC (11.7-14.0) Prothromb Time International Ratio 1.9 (0.8-1.1) Ammonia < 10 mcmol/L (11-34) Brief Hospital Course This is a 72-year-old male, apparently had a mechanical fall on 11/25/2018, and he had probable new L3 vertebral body compression fracture s/p kyphoplasty with IR. 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 He lives with his , has a walker, but does not use. He had been recovering from a recent kyphoplasty done and started walking. He has been on Coumadin after he had saddle pulmonary emboli in 02/2018. The patient also was noted with severe compression fracture of T12 vertebral body and moderate compression changes of L2 vertebral body with kyphoplasty changes and acute compression fracture of L3 vertebral body without bony retropulsion and moderate compression fracture of T5 vertebral body, multilevel degenerative joint disease and degenerative disk disease of thoracic and lumbar vertebrae. He was apparently having some urinary incontinence prior to the present hospitalization Overnight had hypoxia <88%, required nocturnal O2. His notes he does have CPAP at home, full large face mask with [id number] setting. Still a little confused this AM, but mental status is slightly improved, though he did pull his IV. Had some left groin pain today that was severe 10/10 as though a needle is stabbing him. Unaware about his last BM, no SOB or chest pain. Seen by IR, PMR both in consultation. Required bridging to coumadin with heparin for a few days for his history of PE and seen by PT/OT and requires SNF on discharge. Greater than 30 minutes spent on discharge. 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 Discharge Information Condition at Discharge: Improved Follow Up: Weeks (2) Disposition/Orders: D/C to Another Facility Scheduled Amlodipine Besylate/Benazepril (Lotrel 5-20 Mg Capsule) 1 Each Capsule, 1 CAP PO DAILY, #30 Ref 5 (Reported) Entered as Reported by: Waleska De La Cruz on 02/19/181513 Last Action: Converted on 11/27/18 1309 by NATACHA MARI Carbidopa/Levodopa (Sinemet 25-100 Mg Tablet) 1 Each Tablet, 1 TAB PO TID, ( Reported) Entered as Reported by: Waleska De La Cruz on 02/19/18 1514 Last Action: Continued on 11/27/18 1309 by NATACHA MARI Cholecalciferol (Vitamin D3) (Vitamin D3) 1,000 Unit Tablet, 2,000 UNIT PO DAILY , (Reported) Entered as Reported by: Waleska De La Cruz on 02/19/18 1514 Last Action: Continued on 11/27/18 1309 by NATACHA MARI Cyanocobalamin/Fa/Pyridoxine (Folbic Tablet) 1 Each Tablet, 1 TAB PO DAILY for Hypercoagulable for 30 Days, #30 Prescribed by: ILDA MCGUIRE MD on 12/02/18 1518 Docusate Sodium (Colace) 100 Mg Capsule, 1 CAP PO BID for constipation for 30 Days, #60 Prescribed by: ILDA MCGUIRE MD on 12/02/181517 Famotidine (Famotidine) 20 Mg Tablet, 20 MG PO BID, #60 Prescribed by: SARAH CHURCH on 02/21/18 1024 Last Action: Continued on 11/27/181308 by NATACHA MARI Fish Oil/Dha/Epa (Fish Oil 1,200 Mg Fish Oil) 1 Each Capsule, 1,200 MG PO DAILY, (Reported) Entered as Reported by: Waleska De La Cruz on 02/19/181513 Last Action: Converted on 11/27/181308 by NATACHA MARI Garlic (Garlic) 1,000 Mg Capsule, 1,000 MG PO DAILY, (Reported) Entered as Reported by: Waleska De La Cruz on 02/19/181513 Last Action: Converted on 11/27/181308 by NATACHA MARI Lidocaine (Lidocaine) 1 Each Adh..patch, 1 PATCH TD DAILY for back pain for 30 Days, #30 Prescribed by: ILDA MCGUIRE MD on 12/02/181517 Magnesium Oxide (Magnesium) 400 Mg Capsule, 400 MG PO DAILY, (Reported) Entered as Reported by: Waleska De La Cruz on 02/19/181513 Last Action: Converted on 11/27/181308 by NATACHA MARI Pioglitazone Hcl (Actos) 30 Mg Tablet, 30 MG PO DAILY, (Reported) Entered as Reported by: Waleska De La Cruz on 02/19/181513 Last Action: Converted on 11/27/181308 by NATACHA MARI Turmeric/Turmeric Root Extract (Turmeric 500 mg Capsule) 1 Each Capsule, 500 MG PO DAILY, (Reported) Entered as Reported by: [place] De La Cruz on 02/19/181513 Last Action: Converted on 11/27/181308 by NATACHA MARI Ubidecarenone (Coq-10) 100 Mg Capsule, 100 MG PO DAILY, (Reported) Entered as Reported by: Waleska De La Cruz on 02/19/181513 Last Action: Converted on 11/27/181308 by NATACHA MARI Warfarin Sodium (Coumadin) 4 Mg Tablet, 1 TAB PO DAILY, #30 Prescribed by: SARAH CHURCH on 02/21/18 1024 Last Action: Converted on 11/27/18 1309 by NATACHA MARI Scheduled PRN Hydrocodone Bit/Acetaminophen (Hydrocodone-Apap 5-325 ) 1 Tab Tablet, 1 TAB PO PRN Q6HRS PRN for PAIN for 6 Days, #18 Ref 0 Prescribed by: ILDA MCGUIRE MD on 12/02/18 1518 ILDA MCGUIRE MD Dec 02, 2018 15:21
--- NOTE | 2018-12-02 15:53 | NUR ---
Pharmacy Warfarin Dosing Note S:Pharmacy consulted to assist with anticoagulation therapy started with target INR: 2 -3 O:RACHEL WISE is a 72 year old M with DVT/PE LABS: Last INR: 1.9 Last HGB: 13.9 Last HCT: 42 Last PLT: 192 Last dose of 4 mg given on 12/01/18 at 1742 Previous Regimen: Vitamin K given: Drug Interaction Changes: Ongoing Drug Interactions: A:INR of 1.9 is below desired range. Target range for this patient is: 2 -3 P: Warfarin dose: 4 mg Daily Bridge Therapy: Enoxaparin 1 mg/kg q12h Next INR due IN AM Pharmacy anticoagulation service will continue to follow. HALIE NEVES, [facility], 12/02/18 [id number]
--- NOTE | 2018-12-02 15:57 | NUR ---
SW following. Pt will be transported to [facility] at 1700. Pt choice and rights letter signed verbally by pt's / dpoa, Em - placed on chart.
[2018-12-02] MEDS ORDERED: WARFARIN 4 MG TABLET. PO SCH (16:00)
--- NOTE | 2018-12-02 17:40 | NUR ---
Attempted to call report to MARLA Mosqueda at [facility] with no call back. Pt dc by salma galicia, took belonging with her. Pt in stable condition at time of dc.
--- NOTE | 2018-12-02 17:58 | NUR ---
Report given to MARLA Mosqueda at [facility].
== END 2018-12-02 17:40 | DRG 515 ==
LOC: ER 08:11 → 4 NORTH 11:00
PROVIDERS: ADMIT Internal Medicine; ATTEND Internal Medicine
PROC: 0QU03JZ Supplement Lumbar Vertebra with Synthetic Substitute, Percutaneous Approach (ICD-10-PCS; 2018-11-29)
PROC: 30233K1 Transfusion of Nonautologous Frozen Plasma into Peripheral Vein, Percutaneous Approach (ICD-10-PCS; 2018-11-29)
PROC: 0QS03ZZ Reposition Lumbar Vertebra, Percutaneous Approach (ICD-10-PCS; principal; 2018-11-29 11:00)
DX: S32.039A Unspecified fracture of third lumbar vertebra, initial encounter for closed fracture (principal); G93.41 Metabolic encephalopathy; S22.089A Unspecified fracture of T11-T12 vertebra, initial encounter for closed fracture; E11.42 Type 2 diabetes mellitus with diabetic polyneuropathy; G20 Parkinson's disease; M17.0 Bilateral primary osteoarthritis of knee; M47.814 Spondylosis without myelopathy or radiculopathy, thoracic region; I10 Essential (primary) hypertension; E78.5 Hyperlipidemia, unspecified; R79.1 Abnormal coagulation profile; J45.909 Unspecified asthma, uncomplicated; W18.39XA Other fall on same level, initial encounter; Y93.89 Activity, other specified; Y92.89 Other specified places as the place of occurrence of the external cause; Y99.8 Other external cause status; Z86.711 Personal history of pulmonary embolism; Z86.73 Personal history of transient ischemic attack (TIA), and cerebral infarction without residual deficits; Z74.01 Bed confinement status; Z88.5 Allergy status to narcotic agent; Z79.01 Long term (current) use of anticoagulants
CPT/HCPCS: 22514; 36415; 72128; 72131; 72148; 73502; 80048; 82140; 82306; 85025; 85610; 86850; 86900; 86901; 86927; 96374; C1713; C1725; J1650; J1815; J1885; J2250; J7030; P9017; 97530; 97535; 99285-25